=== PATIENT | male | born 1975 | race Caucasian/White ===

== ENCOUNTER → 2016-12-15 | Outpatient (REF) | payer OTHER | LOC: M LAB REF 13:11 | PROVIDERS: ATTEND Nurse Practitioner Family | DX: R35.0 Frequency of micturition (principal); E11.9 Type 2 diabetes mellitus without complications ==

== ENCOUNTER → 2016-12-22 | Outpatient (REF) | payer OTHER ==
[2016-12-22 19:11] LABS: BASO % 0.3 % (0.0-1.0); EOS # 0.2 K/mm3 (0.0-0.50); EOS % 3.3 % (0.0-3.0); LARGE UNSTAINED CELL # 0.1 K/mm3 (0.0-0.4); LARGE UNSTAINED CELL % 1.4 % (0.0-4.0); LYMPH # 2.4 K/mm3 (1.5-4.5); LYMPH % 31.9 % (24.0-44.0); MEAN CORPUSCULAR HEMOGLOBIN 29.5 pg (27.0-33.0); MEAN CORPUSCULAR HGB CONC 33.5 g/dl (32.0-36.5); MEAN CORPUSCULAR VOLUME 88.2 fl (80.0-96.0); MONO # 0.7 K/mm3 (0.0-0.8); MONO % 9.8 % (0.0-5.0); NEUTROPHILS # 3.8 K/mm3 (1.8-7.7); NEUTROPHILS % 53.3 % (36.0-66.0); PLATELET COUNT, AUTOMATED 191 k/mm3 (150-450); RED CELL DISTRIBUTION WIDTH 12.6 % (11.5-14.5); WHITE BLOOD COUNT 7.2 K/mm3 (4.0-10.0)
[2016-12-22 19:36] LABS: ALBUMIN 4.2 GM/DL (3.2-5.2); ALKALINE PHOSPHATASE 107 U/L (45-117); ALT/SGPT 23 U/L (12-78); AMYLASE 23 U/L (25-115); ANION GAP 6 MEQ/L (8-16); AST/SGOT 9 U/L (15-37); BILIRUBIN,TOTAL 0.5 MG/DL (0.2-1.0); BLOOD UREA NITROGEN 14 MG/DL (7-18); CALCIUM LEVEL 8.9 MG/DL (8.5-10.1); CARBON DIOXIDE LEVEL 25 MEQ/L (21-32); CHLORIDE LEVEL 103 MEQ/L (98-107); CHOLESTEROL LEVEL 176 MG/DL (<200); CREATININE FOR GFR 0.73 MG/DL (0.70-1.30); GLOMERULAR FILTRATION RATE > 60.0 (>60); GLUCOSE, FASTING 262 MG/DL (70-105); POTASSIUM SERUM 4.2 MEQ/L (3.5-5.1); SODIUM LEVEL 134 MEQ/L (136-145); TOTAL PROTEIN 7.2 GM/DL (6.4-8.2); TRIGLYCERIDES LEVEL 436 MG/DL (<150)
[2016-12-22 19:51] LABS: ERYTHROCYTE SEDIMENTATION RATE 3 mm/hr (0-15)
[2016-12-25 00:06] LABS: Lyme Disease IgG/IgM Antibodie <0.91 ISR (0.00-0.90); Lyme Disease IgM Ab Quantitati <0.80 index (0.00-0.79)
== END ==
LOC: M LAB REF 17:04
PROVIDERS: ATTEND Nurse Practitioner Family
DX: R10.9 Unspecified abdominal pain (principal); Z13.220 Encounter for screening for lipoid disorders; M25.50 Pain in unspecified joint; Z20.5 Contact with and (suspected) exposure to viral hepatitis; E11.9 Type 2 diabetes mellitus without complications; J02.9 Acute pharyngitis, unspecified; G60.9 Hereditary and idiopathic neuropathy, unspecified; F41.8 Other specified anxiety disorders

== ENCOUNTER → 2017-03-10 | Outpatient (REF) | payer OTHER ==
[2017-03-10 14:21] LABS: ANION GAP 7 MEQ/L (8-16); BLOOD UREA NITROGEN 14 MG/DL (7-18); CALCIUM LEVEL 8.8 MG/DL (8.5-10.1); CARBON DIOXIDE LEVEL 26 MEQ/L (21-32); CHLORIDE LEVEL 108 MEQ/L (98-107); CHOLESTEROL LEVEL 137 MG/DL (<200); CREATININE FOR GFR 0.81 MG/DL (0.70-1.30); GLOMERULAR FILTRATION RATE > 60.0 (>60); GLUCOSE, FASTING 134 MG/DL (70-105); POTASSIUM SERUM 4.1 MEQ/L (3.5-5.1); SODIUM LEVEL 141 MEQ/L (136-145); TRIGLYCERIDES LEVEL 114 MG/DL (<150)
== END ==
LOC: M LAB REF 13:31
PROVIDERS: ATTEND Nurse Practitioner Family
DX: E78.5 Hyperlipidemia, unspecified (principal); E11.9 Type 2 diabetes mellitus without complications

== ENCOUNTER → 2017-04-07 | Outpatient (CLI) | payer OTHER ==
[~2017-04-07] MED LIST: ATOR1TAB21 PO; BUSP15TA47 PO; DULO30CA PO; GABA-283 PO; LISI-542 PO; METF500T13 PO
--- NOTE | 2017-04-07 10:13 | REP ---
MAXILLOFACIAL CT WITHOUT CONTRAST: HISTORY: Chronic sinusitis. Moderate mucosal thickening is present in the ethmoid and left sphenoid sinuses. Minimal mucosal thickening is present in the maxillary, frontal, and right sphenoid sinuses. Mucosal thickening involves the ostiomeatal units. The middle and inferior nasal turbinates are partially paradoxical. There is pola bullosa of the left middle nasal turbinate. There is mild deviation of the nasal septum to the right. The nasal septum abuts the right middle nasal turbinate. A spur is present arising from the left side of the nasal septum. The cribriform plate, medial rossi of the orbits and optic canals are intact. The carotid canals form a segment of the posterolateral rossi of the sphenoid sinus. Soft tissue densities are present in the nasal passage consistent with polyps. IMPRESSION: 1. Sinus mucosal thickening as described above. 2. There are soft tissue densities in the nasal passage consistent with polyps. Signed by Tyler Rosen MD 04/07/2017 10:15 A
== END ==
LOC: M RAD 09:08
PROVIDERS: ATTEND Specialist
DX: J34.89 Other specified disorders of nose and nasal sinuses (principal); J32.4 Chronic pansinusitis; J33.0 Polyp of nasal cavity

== ENCOUNTER 2017-07-04 08:43 | Day surgery (SDC) | payer OTHER ==
[~2017-07-04] VITALS: Ht 172.7 cm; Wt 99.8 kg
[2017-07-04] MEDS ORDERED: LIDOCAINE 1% MDV 20ML VIAL SQ PRN (09:00)
[2017-07-04] MEDS ORDERED: LR 1,000 ML IV ONE (09:00)
[2017-07-04] MEDS ORDERED: METHYLENE BLUE 0.5% (5MG/ML) 10 ML AMP (PROVAYBLUE)(Q9968 PER 1MG) As Ordered ONE (10:12)
[2017-07-04] MEDS ORDERED: EPINEPHrine 1MG/ML INJ 30ML MD-VIAL As Ordered ONE (10:13)
[2017-07-04] MEDS ORDERED: OXYMETAZOLINE NASAL SPRAY (AFRIN) As Ordered ONE (10:13)
[2017-07-04] MEDS ORDERED: LIDOCAINE W/EPINEPHRINE 1% 20ML VIAL As Ordered ONE (10:13)
[2017-07-04] MEDS ORDERED: HYDROmorphone HCL 2 MG/ML 1ML VIAL (J1170) As Ordered ONE (10:32)
[2017-07-04] MEDS ORDERED: fentaNYL 100 MCG/2 ML INJECTION (J3010) As Ordered ONE (10:51)
[2017-07-04] MEDS ORDERED: PROPOFOL 500 MG/50 ML VIAL As Ordered ONE (10:51)
[2017-07-04] MEDS ORDERED: MIDAZOLAM INJ 2 MG/2 ML VIAL (J2250) As Ordered ONE (10:51)
[2017-07-04] MEDS ORDERED: ROCURONIUM BROMIDE 50 MG/5 ML VIAL As Ordered ONE (11:18)
[2017-07-04] MEDS ORDERED: LIDOCAINE 2% INJ 100 MG/5 ML SDV (FOR ANES.) As Ordered ONE (11:18)
[2017-07-04] MEDS ORDERED: dexameTHASONE 4 MG/ML 1ML VIAL (J1100) As Ordered ONE (11:18)
[2017-07-04] MEDS ORDERED: NEOSTIGMINE 10 MG/10 ML VIAL (J2710) As Ordered ONE (11:20)
[2017-07-04] MEDS ORDERED: GLYCOPYRROLATE INJ 0.2 MG/ML 2 ML VIAL As Ordered ONE (11:20)
[2017-07-04] MEDS ORDERED: ONDANSETRON 4MG/2ML VIAL (J2405) As Ordered ONE ×2 (11:22→12:50)
[2017-07-04] MEDS ORDERED: METOCLOPRAMIDE INJ 10MG/2ML VIAL (J2765) As Ordered ONE (12:38)
[2017-07-04] MEDS ORDERED: PERCOCET 5MG/325MG TAB PO PRN ×2 (13:00)
[2017-07-04] MEDS ORDERED: fentaNYL 100 MCG/2 ML INJECTION (J3010) IV PRN (13:00)
[2017-07-04] MEDS ORDERED: ONDANSETRON 4MG/2ML VIAL (J2405) IV PRN (13:00)
[2017-07-04] MEDS ORDERED: METOCLOPRAMIDE INJ 10MG/2ML VIAL (J2765) IV PRN (13:00)
[2017-07-04] MEDS ORDERED: LR 1,000 ML IV SCH (13:00)
[2017-07-04] MEDS ORDERED: HYDROmorphone HCL 1 MG/ML SYRINGE (J1170) IV PRN (13:00)
[2017-07-04] MEDS ORDERED: IBUPROFEN 800 MG TAB PO PRN (17:15)
[2017-07-04 17:45] VITALS: BP 154/88
--- NOTE | 2017-07-04 22:43 | ECGEPIP ---
Stationary ECG Study [facility] Test Date: 2017-07-04 Pat Name: MARQUEZ OLIVER Department: Room: - Gender: M Career Consultant: : 1975 Requested By: Kai Richter Order Number: [id number] Reading MD: Omid Ch Measurements Intervals [place] Rate: 70 P: 53 WV: 171 QRS: -7 QRSD: 107 T: 38 QT: 385 QTc: 418 Interpretive Statements SINUS RHYTHM INCOMPLETE RIGHT BUNDLE BRANCH BLOCK No prior ECG available for comparison at the time of interpretation. Electronically Signed On 07-04-2017 22:43:40 EDT by Omid Ch
--- NOTE | 2017-07-11 14:25 | RO ---
DATE OF PROCEDURE: 07/04/2017 PREPROCEDURE DIAGNOSES: Chronic sinusitis, deviated septum. POSTPROCEDURE DIAGNOSES: Chronic sinusitis, deviated septum. PROCEDURE: Bilateral total endoscopic ethmoidectomy with maxillary antrostomy and septoplasty. INDICATIONS: This is a 41-year-old who presents with a several year history of progressive nasal obstruction, congestion, recurrent sinusitis. PROCEDURE: Satisfactory general endotracheal anesthesia was administered, pharyngeal pack was placed, nose prepared for surgery by placing cotton-soaked pledgets with Afrin solution to the nasal cavity bilaterally, 1% Xylocaine with 1:100,000 epinephrine used to inject the nasal septum. A Zaheer incision was made on the left side of the nose. A mucoperichondrial flap and envelope was created on the left side of the nasal septum and carried down to the junction of the bony and cartilaginous septum. This was then with an elevator, and an envelope was then created on the right side of the septum. A Jaycob scissors was used to make a cut high in the perpendicular plate in the midportion of the vomer, and a central segment of the bony septum was resected. Next, with the round knife on the Luz elevator, a strip of cartilage was resected from the floor of the nose, mobilizing the quadrilateral cartilage and creating a swinging door. Then, a central segment of cartilaginous septum was resected, preserving a 1 cm dorsal and caudal strut. Double-action rongeur was used to take down deflected portions of the perpendicular plate, as well. Finally, the maxillary crest spur was taken down after elevating mucoperiosteum off both sides of it with a chisel. A segment of the resected cartilage was morselized and placed back into the septal envelope. The incision was closed using an interrupted #5-0 chromic suture. Then, a #4-0 plain suture was placed in a [id number] fashion through the two leaves of mucoperichondrium to appose them. After completing the septum surgery, preparation for endoscopic surgery was made. Adrenaline pledgets were placed into the nose. The patient was positioned for endoscopic surgery. Using the 0 degree telescope, 1% Xylocaine with 1:100,000 epinephrine was used to inject the lateral nasal wall and middle turbinate. The microdebrider was the primarily instrument. First, the lateral lamella of the pneumatized middle turbinate on the left side was resected. The uncinate process was shaved down with the microdebrider. The ethmoid bulla was visualized and entered and then resected away. Hyperplastic mucosa was encountered throughout the dissection with some polypoid tissue emerging from the ethmoid complex. This was shaved down with the microdebrider until normal landmarks were seen. The columnella was then perforated and the posterior ethmoid cells were entered again. Hyperplastic polypoid mucosa encountered, but working posteriorly and anteriorly, lamella bone, as well as the hyperplastic mucosa was resected following the lamina papyracea and the skull base anteriorly. Once the supraorbital ethmoid cell was identified, it was opened. The uncinate process was taken down superiorly. Next the natural maxillary sinus ostia was identified. It was cannulated and then using a combination of side biting and biting forceps, it was enlarged. A moderate amount of bleeding was encountered and therefore Adrenaline pledgets were used frequently for hemostasis. Once the dissection was completed, the ethmoid cavity was packed with adrenaline pledgets while the identical procedure was performed on the right side. In both cases, the superior turbinate was reduced to remove any polyps from the sphenoid recess. Completing the surgery on both sides, the adrenaline packs were removed. Nasopore sponge pack was placed on each side of the nose. Pharyngeal pack was removed. Throat was suctioned. The patient was then awakened, extubated and sent to recovery in satisfactory condition. He will discharged home on Percocet for pain, doxycycline 100 mg twice daily. He will be seen back in the office in 24 hours.
== END 2017-07-04 18:00 | disposition home or self-care (01) ==
LOC: M SDC 08:43
PROVIDERS: ATTEND Specialist
DX: J34.2 Deviated nasal septum (principal); J33.0 Polyp of nasal cavity; J32.4 Chronic pansinusitis; J31.0 Chronic rhinitis; I10 Essential (primary) hypertension; E11.40 Type 2 diabetes mellitus with diabetic neuropathy, unspecified; E78.00 Pure hypercholesterolemia, unspecified; K21.9 Gastro-esophageal reflux disease without esophagitis; M12.9 Arthropathy, unspecified; M54.5 Low back pain; F41.9 Anxiety disorder, unspecified; R51 Headache; G47.9 Sleep disorder, unspecified; R06.83 Snoring; Z79.899 Other long term (current) drug therapy; Z79.84 Long term (current) use of oral hypoglycemic drugs; Z72.0 Tobacco use; Z87.81 Personal history of (healed) traumatic fracture
CPT/HCPCS: 30520; 31255; 31256; 88305; 93005; C2625

== ENCOUNTER → 2017-09-21 | Outpatient (REF) | payer OTHER ==
[2017-09-21 14:20] LABS: ALBUMIN 4.1 GM/DL (3.2-5.2); ALBUMIN/GLOBULIN RATIO 1.46 (1.00-1.93); ALKALINE PHOSPHATASE 84 U/L (45-117); ALT/SGPT 24 U/L (12-78); ANION GAP 7 MEQ/L (8-16); AST/SGOT 10 U/L (7-37); BILIRUBIN,TOTAL 0.2 MG/DL (0.2-1.0); BLOOD UREA NITROGEN 14 MG/DL (7-18); CALCIUM LEVEL 8.8 MG/DL (8.5-10.1); CARBON DIOXIDE LEVEL 25 MEQ/L (21-32); CHLORIDE LEVEL 107 MEQ/L (98-107); CHOLESTEROL LEVEL 127 MG/DL (<200); CHOLESTEROL RISK RATIO 3.628 (<5); CREATININE FOR GFR 0.85 MG/DL (0.70-1.30); GLOMERULAR FILTRATION RATE > 60.0 (>60); GLUCOSE, FASTING 157 MG/DL (70-105); HDL CHOLESTEROL 35 MG/DL (>40); LDL CHOLESTEROL 67.4 MG/DL (<100); NON-HDL-C 92 MG/DL; POTASSIUM SERUM 4.5 MEQ/L (3.5-5.1); SODIUM LEVEL 139 MEQ/L (136-145); THYROID STIMULATING HORMONE 0.328 uIU/ML (0.358-3.740); TOTAL PROTEIN 6.9 GM/DL (6.4-8.2); TRIGLYCERIDES LEVEL 123 MG/DL (<150)
[2017-09-21 14:56] LABS: ESTIMATED AVERAGE GLUCOSE 140 MG/DL (60-110); HEMOGLOBIN A1c 6.5 %
== END ==
LOC: M LAB REF 13:06
DX: E11.9 Type 2 diabetes mellitus without complications (principal)

== ENCOUNTER → 2019-03-15 | Outpatient (REF) | payer OTHER ==
[~2019-03-15] MED LIST changes: -DULO30CA PO; +DULO30CA9 PO; -GABA-283 PO; +GABA-845 PO
== END ==
LOC: M LAB REF 17:13
PROVIDERS: ATTEND Nurse Practitioner Family
DX: E11.9 Type 2 diabetes mellitus without complications (principal)

== ENCOUNTER → 2019-05-10 | Outpatient (REF) | payer OTHER ==
[2019-05-10 18:39] LABS: BASO % 0.3 % (0.0-1.0); EOS # 0.3 10^3/uL (0.0-0.50); EOS % 3.4 % (0.0-3.0); HEMATOCRIT 47.8 % (42.0-52.0); HEMOGLOBIN 15.7 g/dl (13.5-17.5); LYMPH % 35.3 % (24.0-44.0); MEAN CORPUSCULAR HEMOGLOBIN 27.8 pg (27.0-33.0); MEAN CORPUSCULAR HGB CONC 32.8 g/dl (32.0-36.5); MEAN CORPUSCULAR VOLUME 84.8 fl (80.0-96.0); MONO # 0.9 10^3/uL (0.0-0.8); MONO % 9.9 % (0.0-5.0); NEUTROPHILS # 4.4 10^3/uL (1.8-7.7); NEUTROPHILS % 50.6 % (36.0-66.0); PLATELET COUNT, AUTOMATED 250 10^3/uL (150-450); RED BLOOD COUNT 5.64 10^6/uL (4.30-6.10); WHITE BLOOD COUNT 8.6 10^3/uL (4.0-10.0)
[2019-05-10 19:20] LABS: ALBUMIN 3.9 GM/DL (3.2-5.2); ALT/SGPT 22 U/L (12-78); BILIRUBIN,TOTAL 0.3 MG/DL (0.2-1.0); BLOOD UREA NITROGEN 14 MG/DL (7-18); CALCIUM LEVEL 9.2 MG/DL (8.5-10.1); CARBON DIOXIDE LEVEL 23 MEQ/L (21-32); CHLORIDE LEVEL 110 MEQ/L (98-107); CHOLESTEROL LEVEL 162 MG/DL (<200); CHOLESTEROL RISK RATIO 4.628 (<5); CREATININE FOR GFR 0.86 MG/DL (0.70-1.30); GLOMERULAR FILTRATION RATE > 60.0 (>60); GLUCOSE, FASTING 155 MG/DL (70-100); HDL CHOLESTEROL 35 MG/DL (>40); LDL CHOLESTEROL 101 MG/DL (<100); NON-HDL-C 127 MG/DL; POTASSIUM SERUM 4.4 MEQ/L (3.5-5.1); SODIUM LEVEL 139 MEQ/L (136-145); THYROID STIMULATING HORMONE 0.685 uIU/ML (0.358-3.740); TOTAL PROTEIN 7.2 GM/DL (6.4-8.2); TRIGLYCERIDES LEVEL 130 MG/DL (<150)
[2019-05-10 21:06] LABS: TOTAL 25(OH) VITAMIN D 22.7 NG/ML (30.0-100.0)
[2019-05-10 22:05] LABS: HEMOGLOBIN A1c 10.7 %
== END ==
LOC: M LAB REF 16:43
PROVIDERS: ATTEND Nurse Practitioner Family
DX: E11.9 Type 2 diabetes mellitus without complications (principal); E78.5 Hyperlipidemia, unspecified; I10 Essential (primary) hypertension

== ENCOUNTER → 2019-12-04 | Outpatient (REF) | payer OTHER, MEDICAID ==
[2019-12-04 12:14] LABS: BASO % 0.3 % (0.0-1.0); EOS # 0.5 10^3/uL (0.0-0.5); EOS % 4.5 % (0.0-3.0); HEMATOCRIT 44.7 % (42.0-52.0); HEMOGLOBIN 14.6 g/dl (13.5-17.5); LYMPH # 2.7 10^3/uL (1.5-5.0); LYMPH % 23.3 % (24.0-44.0); MEAN CORPUSCULAR HEMOGLOBIN 27.2 pg (27.0-33.0); MEAN CORPUSCULAR HGB CONC 32.7 g/dl (32.0-36.5); MEAN CORPUSCULAR VOLUME 83.2 fl (80.0-96.0); MONO # 1.4 10^3/uL (0.0-0.8); MONO % 12.3 % (0.0-5.0); NEUTROPHILS # 6.8 10^3/uL (1.5-8.5); NEUTROPHILS % 58.7 % (36.0-66.0); PLATELET COUNT, AUTOMATED 261 10^3/uL (150-450); RED BLOOD COUNT 5.37 10^6/uL (4.30-6.10); WHITE BLOOD COUNT 11.7 10^3/uL (4.0-10.0)
[2019-12-04 12:23] LABS: ALBUMIN 3.6 GM/DL (3.2-5.2); ALT/SGPT 21 U/L (12-78); BILIRUBIN,TOTAL 0.2 MG/DL (0.2-1.0); BLOOD UREA NITROGEN 19 MG/DL (7-18); CALCIUM LEVEL 9.2 MG/DL (8.5-10.1); CARBON DIOXIDE LEVEL 26 MEQ/L (21-32); CHLORIDE LEVEL 108 MEQ/L (98-107); CHOLESTEROL LEVEL 184 MG/DL (<200); CHOLESTEROL RISK RATIO 5.411 (<5); CREATININE FOR GFR 0.88 MG/DL (0.70-1.30); FREE T4 1.12 NG/DL (0.76-1.46); GLOMERULAR FILTRATION RATE > 60.0 (>60); GLUCOSE, FASTING 128 MG/DL (70-100); HDL CHOLESTEROL 34 MG/DL (>40); LDL CHOLESTEROL 118 MG/DL (<100); NON-HDL-C 150 MG/DL; POTASSIUM SERUM 4.2 MEQ/L (3.5-5.1); SODIUM LEVEL 139 MEQ/L (136-145); TOTAL PROTEIN 6.9 GM/DL (6.4-8.2); TRIGLYCERIDES LEVEL 159 MG/DL (<150)
[2019-12-04 12:26] LABS: TOTAL 25(OH) VITAMIN D 16.2 NG/ML (30.0-100.0)
[2019-12-04 12:28] LABS: HEMOGLOBIN A1c 6.7 %
== END ==
LOC: M LAB REF 11:37
PROVIDERS: ATTEND Nurse Practitioner Family
DX: E55.9 Vitamin D deficiency, unspecified (principal); E66.09 Other obesity due to excess calories; Z79.84 Long term (current) use of oral hypoglycemic drugs; Z72.0 Tobacco use; E78.5 Hyperlipidemia, unspecified; I10 Essential (primary) hypertension; F41.8 Other specified anxiety disorders; G60.9 Hereditary and idiopathic neuropathy, unspecified; E11.9 Type 2 diabetes mellitus without complications

== ENCOUNTER 2019-12-12 17:39 | Emergency (ER) | payer MEDICAID, OTHER ==
[~2019-12-12] VITALS: Ht 185.4 cm; Wt 110.8 kg
[2019-12-12 17:40] VITALS: BP 142/87
[2019-12-12] MEDS ORDERED: ACET-841 PO (17:58)
[2019-12-12] MEDS ORDERED: KETOROLAC 60 MG/2 ML VIAL (J1885) IM ONE (18:15)
--- NOTE | 2019-12-12 18:55 | REP ---
Clinical: Trauma. Technique: Frontal view of the chest with four views of the right hemithorax. Findings: Frontal view of the chest demonstrates no acute cardiopulmonary process. Multiple views of the right hemithorax demonstrates no obvious acute rib fracture or pathology. Impression: No acute rib fracture identified. Electronically Signed by Andrew Robertson MD 12/12/2019 06:46 P
== END 2019-12-12 19:02 | disposition home or self-care (01) ==
LOC: M ED 17:39
DX: S20.211A Contusion of right front wall of thorax, initial encounter (principal); V18.4XXA Pedal cycle driver injured in noncollision transport accident in traffic accident, initial encounter; Y92.410 Unspecified street and highway as the place of occurrence of the external cause; Y93.55 Activity, bike riding; Y99.9 Unspecified external cause status; E11.9 Type 2 diabetes mellitus without complications; I10 Essential (primary) hypertension; E78.5 Hyperlipidemia, unspecified; F17.200 Nicotine dependence, unspecified, uncomplicated
CPT/HCPCS: 71101; 96372; 99284; J1885

== ENCOUNTER 2020-03-18 16:03 | Emergency (ER) | payer OTHER ==
[~2020-03-18] VITALS: Ht 185.4 cm; Wt 101.3 kg
[~2020-03-18 16:03] MED LIST changes: +ACET-841 PO
[2020-03-18] MEDS ORDERED: METF10004 (16:11)
[2020-03-18] MEDS ORDERED: NS 1,000 ML IV ONE (16:45)
[2020-03-18] MEDS ORDERED: ONDANSETRON 4MG/2ML VIAL IV ONE (16:45)
--- NOTE | 2020-03-18 17:15 | REP ---
Clinical: Cellulitis. Evaluate for abscess. Technique: Real time fernández scale ultrasound examination using linear high frequency transducer. Findings: Directed ultrasound examination of the left antecubital region demonstrates subcutaneous edema and open wound. No discrete focal drainable collection/abscess identified. Impression: Significant subcutaneous edema and evidence for cellulitis with draining wound. No discrete abscess. Electronically Signed by Andrew Robertson MD 03/18/2020 05:07 P
[2020-03-18 17:50] LABS: BASO % 0.3 % (0.0-1.0); EOS # 0.1 10^3/uL (0.0-0.5); EOS % 1.8 % (0.0-3.0); HEMATOCRIT 38.5 % (42.0-52.0); HEMOGLOBIN 12.4 g/dl (13.5-17.5); LYMPH # 0.4 10^3/uL (1.5-5.0); MEAN CORPUSCULAR HEMOGLOBIN 26.5 pg (27.0-33.0); MEAN CORPUSCULAR HGB CONC 32.2 g/dl (32.0-36.5); MEAN CORPUSCULAR VOLUME 82.3 fl (80.0-96.0); MONO # 0.4 10^3/uL (0.0-0.8); NEUTROPHILS # 6.2 10^3/uL (1.5-8.5); NEUTROPHILS % 85.1 % (36.0-66.0); PLATELET COUNT, AUTOMATED 290 10^3/uL (150-450); RED BLOOD COUNT 4.68 10^6/uL (4.30-6.10); WHITE BLOOD COUNT 7.3 10^3/uL (4.0-10.0)
[2020-03-18 18:09] LABS: ERYTHROCYTE SEDIMENTATION RATE 39 mm/hr (0-15)
[2020-03-18 18:13] LABS: ALBUMIN 3.3 GM/DL (3.2-5.2); BILIRUBIN,DIRECT 0.2 MG/DL (0.0-0.2); BILIRUBIN,TOTAL 0.6 MG/DL (0.2-1.0); C REACTIVE PROTEIN QUANTITATIV 6.86 MG/DL (0.00-0.30); TOTAL PROTEIN 7.6 GM/DL (6.4-8.2)
[2020-03-18] MEDS ORDERED: DALBAVANCIN 1,500 MG in D5W 250 ML IV ONE (19:00)
[2020-03-18 20:06] VITALS: BP 132/77
== END 2020-03-18 20:40 | disposition home or self-care (01) ==
LOC: M ED 16:03
DX: L03.114 Cellulitis of left upper limb (principal); E11.9 Type 2 diabetes mellitus without complications; I10 Essential (primary) hypertension; F19.10 Other psychoactive substance abuse, uncomplicated; Z79.84 Long term (current) use of oral hypoglycemic drugs; Z79.899 Other long term (current) drug therapy
CPT/HCPCS: 76882; 80047; 80076; 83605; 85025; 85652; 86140; 87040; 87070; 87077; 87186; 87205; 96361; 96365; 96375; 99284; J0875; J2405

== ENCOUNTER 2020-08-22 04:30 | Inpatient (IN) | payer OTHER ==
[~2020-08-22] VITALS: Ht 185.4 cm; Wt 95.9 kg
[~2020-08-22 04:30] MED LIST changes: +METF10004
[2020-08-22 04:58] LABS: BASO % 0.3 % (0.0-1.0); EOS # 0.1 10^3/uL (0.0-0.5); EOS % 1.4 % (0.0-3.0); HEMATOCRIT 38.4 % (42.0-52.0); HEMOGLOBIN 12.4 g/dl (13.5-17.5); LYMPH # 2.5 10^3/uL (1.5-5.0); LYMPH % 25.5 % (24.0-44.0); MEAN CORPUSCULAR HEMOGLOBIN 25.8 pg (27.0-33.0); MEAN CORPUSCULAR HGB CONC 32.3 g/dl (32.0-36.5); MEAN CORPUSCULAR VOLUME 79.8 fl (80.0-96.0); MONO # 1.7 10^3/uL (0.0-0.8); MONO % 16.9 % (0.0-5.0); NEUTROPHILS # 5.5 10^3/uL (1.5-8.5); NEUTROPHILS % 55.7 % (36.0-66.0); PLATELET COUNT, AUTOMATED 295 10^3/uL (150-450); RED BLOOD COUNT 4.81 10^6/uL (4.30-6.10); WHITE BLOOD COUNT 9.9 10^3/uL (4.0-10.0)
[2020-08-22 05:34] LABS: ALBUMIN 3.7 GM/DL (3.2-5.2); ALT/SGPT 71 U/L (12-78); BILIRUBIN,DIRECT 0.2 MG/DL (0.0-0.2); BILIRUBIN,TOTAL 0.6 MG/DL (0.2-1.0); BLOOD UREA NITROGEN 37 MG/DL (7-18); CALCIUM LEVEL 8.7 MG/DL (8.5-10.1); CARBON DIOXIDE LEVEL 27 MEQ/L (21-32); CHLORIDE LEVEL 103 MEQ/L (98-107); CREATININE FOR GFR 1.35 MG/DL (0.70-1.30); GLOMERULAR FILTRATION RATE > 60.0 (>60); GLUCOSE, FASTING 151 MG/DL (70-100); LIPASE 65 U/L (73-393); POTASSIUM SERUM 4.1 MEQ/L (3.5-5.1); SODIUM LEVEL 138 MEQ/L (136-145); TOTAL PROTEIN 7.3 GM/DL (6.4-8.2)
[2020-08-22] MEDS ORDERED: NS 1,000 ML IV ONE (06:30)
[2020-08-22] MEDS ORDERED: ISOVUE-370 76% 100ML VIAL As Ordered ONE (06:37)
--- NOTE | 2020-08-22 07:34 | REPVR ---
PROCEDURE INFORMATION: Exam: CT Abdomen And Pelvis With Contrast Exam date and time: 08/22/2020 6:48 AM Age: 44 years old Clinical indication: Abdominal pain; Generalized; Additional info: Abd pain, hematachezia TECHNIQUE: Imaging protocol: Computed tomography of the abdomen and pelvis with intravenous contrast. Radiation optimization: All CT scans at this facility use at least one of these dose optimization techniques: automated exposure control; mA and/or kV adjustment per patient size (includes targeted exams where dose is matched to clinical indication); or iterative reconstruction. Contrast material: ISOVUE 370; Contrast volume: 100 ml; Contrast route: INTRAVENOUS (IV); COMPARISON: No relevant prior studies available. FINDINGS: Liver: The liver is enlarged measuring up to 18.7 cm in mid clavicular line. Gallbladder and bile ducts: Normal. No calcified stones. No ductal dilation. Pancreas: Normal. No ductal dilation. Spleen: The spleen is enlarged measuring up to 16 cm in maximum dimension. Adrenal glands: Normal. No mass. Kidneys and ureters: Bilateral renal cysts seen the largest on the right is in the upper pole measuring 2.5 cm and the largest on the left is in the lower pole measuring 2.3 centimetres. Some of the cysts measure higher than simple fluid. There is a 2 mm left renal stone. There is no ureteral stones or hydronephrosis. Stomach and bowel: There is short segment significant circumferential thickening of the sigmoid colon with an eccentric intraluminal masslike density. There are multiple prominent pericolonic lymph nodes measuring up to 1.4 centimetres with pericolonic stranding and increased vascularity. The cecum and proximal ascending colon are thickened. Appendix: No evidence of appendicitis. Intraperitoneal space: Unremarkable. No free air. No significant fluid collection. Vasculature: Unremarkable. No abdominal aortic aneurysm. Lymph nodes: Shotty retroperitoneal and mesenteric lymph nodes are seen. Urinary bladder: Unremarkable as visualized. Reproductive: Unremarkable as visualized. Bones/joints: There is L5-S1 disc degenerative changes. Soft tissues: There is a small bilateral fat containing inguinal hernias. IMPRESSION: 1. Short segment of significant sigmoid colon thickening with eccentric masslike intraluminal structure coupled with surrounding increased vascularity and numerous enlarged lymph nodes suspicious for neoplastic process. Similar findings but to lesser extent seen in the cecum and proximal ascending colon where colitis is a possibility. 2. Hepatosplenomegaly. 3. Bilateral renal cysts measuring higher than simple fluid which could be secondary to pseudo enhancement however further characterization with ultrasound or MRI is suggested. 4. Nonobstructing 2 mm left renal stone. 5. Small bilateral fat containing inguinal hernias. COMMENTS: Consistent with the [employer]'s Incidental Findings Committee white paper (J Am Sussy Radiol 2018): Any incidental renal lesion less than 1 cm or classified as too small to characterize, or any incidental cystic renal lesion characterized as simple-appearing, is likely benign. No follow-up imaging is recommended for these lesions per consensus recommendations based on imaging criteria. Electronically signed by: Chaz Loera On 08/22/2020 07:34:44 AM
--- NOTE | 2020-08-22 07:36 | REPVR ---
PROCEDURE INFORMATION: Exam: CT Head Without Contrast Exam date and time: 08/22/2020 6:48 AM Age: 44 years old Clinical indication: Injury or trauma; Fall; Blunt trauma (contusions or hematomas) TECHNIQUE: Imaging protocol: Computed tomography of the head without contrast. Radiation optimization: All CT scans at this facility use at least one of these dose optimization techniques: automated exposure control; mA and/or kV adjustment per patient size (includes targeted exams where dose is matched to clinical indication); or iterative reconstruction. COMPARISON: No relevant prior studies available. FINDINGS: Brain: Normal. No hemorrhage. Unremarkable white matter. No mass effect. Cerebral ventricles: No ventriculomegaly. Bones/joints: Unremarkable. No acute fracture. Paranasal sinuses: The patient is possibly status post ethmoidectomy. There is total opacification of the left sphenoid sinus. Mastoid air cells: Visualized mastoid air cells are well aerated. Soft tissues: Unremarkable. IMPRESSION: 1. No CT evidence of acute intracranial hemorrhage, mass effect or midline shift. 2. Likely status post ethmoidectomy with opacification in the region of the anterior right ethmoidal air cells and total opacification of the left sphenoid sinus. Electronically signed by: Chaz Loera On 08/22/2020 07:37:04 AM
[2020-08-22] MEDS ORDERED: DERMABOND TOPICAL SKIN ADHESIVE TOP ONE (08:00)
[2020-08-22] MEDS ORDERED: GLUCOSE 4GM CHEW TABLET PO PRN (09:00)
[2020-08-22] MEDS ORDERED: DEXTROSE 50% 50 ML SYRINGE IV PRN (09:00)
[2020-08-22] MEDS ORDERED: GLUCAGON INJ 1MG VIAL SC PRN (09:00)
--- NOTE | 2020-08-22 09:08 | HPEPDOC ---
General Date of Admission 08/22/20 Date of Service: Aug 22, 2020 Chief Complaint The patient is a 44-year-old male admitted with a reason for visit of Gi Problem. Source: Patient Exam Limitations: Intoxication Timing/Duration: Day(s) Severity: Moderate History of Present Illness Patient is 44 years old male with past medical history of polysubstance abuse, diabetes type 2, hypertension presented to the hospital with lower GI bleed. Patient stated that for past 2 days he has been having intermittent stool with red blood. Patient has never had his symptoms before. In ER patient was found to have positive orthostatic vital signs, he developed fall in emergency room and hit his head. CT head negative. CT abdomen and pelvis was done and showed Short segment of significant sigmoid colon thickening with eccentric masslike intraluminal structure coupled with surrounding increased vascularity and numerous enlarged lymph nodes suspicious for neoplastic process. Similar findings but to lesser extent seen in the cecum and proximal ascending colon where colitis is a possibility. Home Medications No Active Prescriptions or Reported Meds Allergies Coded Allergies: No Known Allergies (Unverified , 07/04/17) Past Medical History Medical History Type 2 diabetes, hypertension, polysubstance abuse Family History I personally reviewed from history and found not pertinent Social History * Smoker: current smoker Alcohol: Denies Drugs: IV drug use (methamphetamine) A-FIB/CHADSVASC A-FIB History Current/History of A-Fib/PAF?: No Current PO Anticoag Therapy: No Review of Systems Constitutional: Denies: Chills, Fever Eyes: Denies: Pain ENT: Denies: Head Aches Skin: Denies: Rash, Lesions Pulmonary: Denies: Dyspnea, Cough Cardiovascular: Denies: Chest Pain Gastrointestinal: Reports: Other Symptoms (stool covered with blood); Denies: Nausea, Vomiting Genitourinary: Denies: Dysuria Hematologic: Denies: Bruising Endocrine: Denies: Polydipsia, Polyphagia Musculoskeletal: Denies: Neck Pain Neurological: Denies: Weakness Psych: Reports: Anxiety Physical Examination General Exam: Positive: Alert, Cooperative ENT Exam: Positive: Atraumatic Neck Exam: Positive: Supple; Negative: JVD Chest Exam: Positive: Clear to auscultation Heart Exam: Positive: Rate Normal Telemetry: Positive: No significant arrhythmia Abdomen Exam: Positive: BS Hyperactive Extremity Exam: Negative: Clubbing Skin Exam: Positive: Nl turgor and temperature Neuro Exam: Positive: Strength at 5/5 X4 ext, Cranial Nerves 3-12 NL Psych Exam: Positive: Anxiety, Oriented x 3 Vital Signs Vital Signs Date Time Temp Pulse Resp B/P (MAP) Pulse Ox O2 Delivery O2 Flow Rate FiO2 08/22/20 07:28 87 100 08/22/20 07:15 20 144/90 (108) Room Air 08/22/20 04:30 99.8 Laboratory Data Labs 24H Laboratory Tests 2 08/22/20 04:52: Immature Granulocyte % (Auto) 0.2, Neutrophils (%) (Auto) 55.7, Lymphocytes (%) (Auto) 25.5, Monocytes (%) (Auto) 16.9H, Eosinophils (%) (Auto) 1.4, Basophils (%) (Auto) 0.3, Neutrophils # (Auto) 5.5, Lymphocytes # (Auto) 2.5, Monocytes # (Auto) 1.7H, Eosinophils # (Auto) 0.1, Basophils # (Auto) 0.0, Nucleated Red Blood Cells % (auto) 0.0, Anion Gap 8, Glomerular Filtration Rate > 60.0, Calcium Level 8.7, Total Bilirubin 0.6, Direct Bilirubin 0.2, Aspartate Amino Transf (AST/SGOT) 57H, Alanine Aminotransferase (ALT/SGPT) 71, Alkaline Phosphatase 89, Total Protein 7.3, Albumin 3.7, Albumin/Globulin Ratio 1.0, Lipase 65L, Ethyl Alcohol Level < 0.003 08/22/20 07:11: CBC/BMP Laboratory Tests 08/22/20 04:52 Assessment/Plan Patient is 44 years old male with past medical history of polysubstance abuse, diabetes type 2, hypertension presented to the hospital with lower GI bleed. Patient stated that for past 2 days he has been having intermittent stool with red blood. Patient has never had his symptoms before. In ER patient was found to have positive orthostatic vital signs, he developed fall in emergency room and hit his head. CT head negative. CT abdomen and pelvis was done and showed Short segment of significant sigmoid colon thickening with eccentric masslike intraluminal structure coupled with surrounding increased vascularity and numerous enlarged lymph nodes suspicious for neoplastic process. Similar findings but to lesser extent seen in the cecum and proximal ascending colon where colitis is a possibility. Problems (1) GI bleed Status: Acute Problem Text: Most likely lower GI bleed secondary to malignancy CT scan positive for sigmoid colon thickening with eccentric masslike intraluminal structure coupled with surrounding increased vascularity and numerous enlarged lymph nodes suspicious for neoplastic process. Similar findi ngs but to lesser extent seen in the cecum and proximal ascending colon where colitis is a possibility Appreciate/agree with GI consult. Patient will need colonoscopy Hemoglobin stable Continue to monitor Clear liquids for now (2) Diabetes mellitus Status: Chronic Problem Text: Patient complained to his treatment Will check HbA1c Insulin sliding scale (3) IV drug abuse Status: Chronic Problem Text: Social service on board (4) Hypertension Status: Chronic Problem Text: Norvasc 10 mg (5) DAYLIN (acute kidney injury) Status: Acute Problem Text: Secondary to dehydration IV fluid Continue to monitor Plan / VTE VTE Prophylaxis Ordered?: No VTE Exclusion Pharmacological: Active Bleeding BERNADETTE COLBERT DO Aug 22, 2020 09:08
[2020-08-22] MEDS ORDERED: amLODIPine 10 MG TAB PO ONE (09:15)
[2020-08-22] MEDS: NS 1,000 ML IV SCH ×2 (09:34→17:57)
[2020-08-22 09:41] LABS: AMPHETAMINES LEVEL URINE POSITIVE (NEGATIVE); BARBITURATES URINE NEGATIVE (NEGATIVE); BENZODIAZEPINES URINE NEGATIVE (NEGATIVE); CANNABINOIDS URINE NEGATIVE (NEGATIVE); COCAINE METABOLITE URINE NEGATIVE (NEGATIVE); METHADONE URINE NEGATIVE (NEGATIVE); OPIATES URINE NEGATIVE (NEGATIVE); PHENCYCLIDINE URINE NEGATIVE (NEGATIVE)
[2020-08-22] MEDS ORDERED: LORazepam 2 MG TAB PO ONE (10:30)
[2020-08-22 11:45] VITALS: BP 108/71
[2020-08-22] MEDS: HumaLOG INSULIN (NovoLOG) PER UNIT SC SCH ×3 (12:00→21:00)
[2020-08-22 14:00] VITALS: BP 110/73
--- NOTE | 2020-08-22 14:54 | CR.PDOC ---
General Surgery Consultation Date of Consultation 08/22/20 History and Physical CONSULT REPORT FOR: Dr. Henson REASON FOR CONSULTATION: rectal bleeding ?mass at sigmoid and cecum HISTORY OF PRESENT ILLNESS: I was asked to consult on Mr. Dominguez is a 44-year-old male who presented himself to the emergency room roughly about 4 AM this morning with complaints of passing large amounts of blood pain really since morning. I saw the patient in his room with patient has been falling in and out of sleep but I was talking to him so I was unable to get much of the details of this history. He denies any recent weight loss, any prior colonoscopy. He denies any family members with colorectal or GI malignancy. He reports noticing blood in the toilet bowl 1 or 2 times. Last episode was during the emergency room where he was noted to be incontinent and was having some bloody stool. He was also mildly orthostatic with his blood pressure. He had a fall and loss of consciousness during his stay in the emergency room which seemed to have prompted the multiple imaging for workup of possible injury. He has CT abdomen and pelvis which shows a possible mass at the sigmoid and may also be in the cecum. With this findings I was asked to evaluate the patient. He admits to taking Moly yesterday, denies taking conocomitant substances or alcohol PAST MEDICAL HISTORY: 1. drug use (current) 2. Diabetes 3. Hypertension 4. COPD/sleep apnea PAST SURGICAL HISTORY: INCLUDES: 1. jaw surgery 2. sinus surgery 3. arm and ankle surgery ALLERGIES: Please see below. FAMILY HISTORY: denies colorectal, gi malignancies HOME MEDICATIONS: Please see below. REVIEW OF SYSTEMS: Patient denies any abdominal weight loss. He reports a good appetite. She reports rate is regular daily bowel movements no prior bleeding per rectum, no problems with hemorrhoids. He reports use of Moly. Reports he has diabetes on metformin. Denies polyphagia, polyuria. Denies any bleeding or clotting problems. Denies any problems with anesthesia. He has never had a colonoscopy for any reason. Denies dysuria, hematuria. Denies any chronic abdominal complaints nausea vomiting bloating. Denies any chest pains. Reports COPD and sleep apnea but not all CPAP nor any medications for this. PHYSICAL EXAMINATION: VITALS SIGNS: Please see below. GENERAL APPEARANCE: Patient was asleep when I entered the room, hard to wake up and awoke was falling in and out of sleep while conversing with me. This does not seem to be in any acute distress nor in any pain. Slightly disoriented specially with time. He is aware that he is admitted in the hospital.. SKIN:: Moist. HEENT: Normocephalic, atraumatic.anicteric sclerae. Lips and mucosa appear moist. NECK: Supple, no thyromegaly. No obvious jugular venous distention. LUNGS: Clear to auscultation bilaterally. No wheezing appreciated. HEART: No chest wall abnormalities. Regular rate and rhythm with no murmurs appreciated. ABDOMEN: Abdomen is soft, flat, nondistended. EXTREMITIES: No extremity injury, deformity or edema ANCILLARIES: . LABORATORY DATA: Please see below. IMAGING STUDIES: CT scan abdomen and pelvis. I reviewed the images myself. He has some suspicious findings on his sigmoid colon with sigmoid colon thickening eccentric masslike intraluminal structure likewise enlarged lymph node suspicious for neoplastic process. Also in the cecum and ascending colon appears thickened. No free air or free fluid IMPRESSION AND PLAN: No GI bleeding Suspicious intraluminal lesions in the sigmoid and may be also in the cecum. With this findings patient will need a colonoscopy to figure out what's happening in the sigmoid colon and the cecum. Unfortunately acute swelling in and out of sleep so I'll come back and talk to him about doing a colonoscopy tomorrow. He does not seem to be in any position to perform a bowel prep tonight specially with history of fall. He can have some soft diet today, clear liquids tomorrow and possibly prep on Tuesday evening.. Vital Signs Vital Signs Date Time Temp Pulse Resp B/P (MAP) Pulse Ox O2 Delivery O2 Flow Rate FiO2 08/22/20 11:45 98.5 89 18 108/71 (83) 95 Room Air Laboratory Data Labs 24H Laboratory Tests 2 08/22/20 04:52: Immature Granulocyte % (Auto) 0.2, Neutrophils (%) (Auto) 55.7, Lymphocytes (%) (Auto) 25.5, Monocytes (%) (Auto) 16.9H, Eosinophils (%) (Auto) 1.4, Basophils (%) (Auto) 0.3, Neutrophils # (Auto) 5.5, Lymphocytes # (Auto) 2.5, Monocytes # (Auto) 1.7H, Eosinophils # (Auto) 0.1, Basophils # (Auto) 0.0, Nucleated Red Blood Cells % (auto) 0.0, Anion Gap 8, Glomerular Filtration Rate > 60.0, Calcium Level 8.7, Total Bilirubin 0.6, Direct Bilirubin 0.2, Aspartate Amino Transf (AST/SGOT) 57H, Alanine Aminotransferase (ALT/SGPT) 71, Alkaline Phosphatase 89, Total Protein 7.3, Albumin 3.7, Albumin/Globulin Ratio 1.0, Lipase 65L, Ethyl Alcohol Level < 0.003 08/22/20 07:11: Coronavirus (COVID-19)(PCR) NEGATIVE 08/22/20 08:59: Urine Opiates Screen NEGATIVE, Urine Methadone Screen NEGATIVE, Urine Barbiturates Screen NEGATIVE, Urine Phencyclidine Screen NEGATIVE, Urine Amphetamines Screen POSITIVEH, Urine Benzodiazepines Screen NEGATIVE, Urine Cocaine Metabolite Screen NEGATIVE, Urine Cannabinoids Screen NEGATIVE 08/22/20 11:47: Bedside Glucose (Misc Panel) 134H CBC/BMP Laboratory Tests 08/22/20 04:52 Home Medications No Active Prescriptions or Reported Meds Allergies Coded Allergies: No Known Allergies (Unverified , 07/04/17) FERMÍN SINGER MD Aug 22, 2020 12:21
[2020-08-22 22:00] VITALS: BP 125/85
[2020-08-23] MEDS: NS 1,000 ML IV SCH ×3 (02:58→21:21)
[2020-08-23 05:02] LABS: HEMOGLOBIN 11.1 g/dl (13.5-17.5); MEAN CORPUSCULAR HEMOGLOBIN 25.5 pg (27.0-33.0); MEAN CORPUSCULAR HGB CONC 30.8 g/dl (32.0-36.5); MEAN CORPUSCULAR VOLUME 82.6 fl (80.0-96.0); PLATELET COUNT, AUTOMATED 226 10^3/uL (150-450); RED BLOOD COUNT 4.36 10^6/uL (4.30-6.10); WHITE BLOOD COUNT 6.8 10^3/uL (4.0-10.0)
[2020-08-23 06:00] VITALS: BP 126/72
--- NOTE | 2020-08-23 06:34 | ECGEPIP ---
[facility] - ED Test Date: 2020-08-22 Pat Name: MARQUEZ OLIVER Department: Room: - Gender: Male Complaint Clerk: juvencio : 1975 Requested By: CHELLY Guzman Order Number: [id number] Reading MD: Daiana Gomez Measurements Intervals [place] Rate: 99 P: 56 HI: 158 QRS: -11 QRSD: 102 T: 39 QT: 356 QTc: 459 Interpretive Statements SINUS RHYTHM INCOMPLETE RIGHT BUNDLE BRANCH BLOCK NONSPECIFIC ST T WAVE CHANGES PROLONGED QTC CW 07/04/[address] T WAVE CHANGES Electronically Signed on 08-23-2020 6:33:45 EST by Daiana Gomez
[2020-08-23] MEDS: HumaLOG INSULIN (NovoLOG) PER UNIT SC SCH ×4 (07:30→21:00)
[2020-08-23 08:42] LABS: ALBUMIN 2.8 GM/DL (3.2-5.2); ALT/SGPT 50 U/L (12-78); BILIRUBIN,TOTAL 0.3 MG/DL (0.2-1.0); BLOOD UREA NITROGEN 16 MG/DL (7-18); CALCIUM LEVEL 8.2 MG/DL (8.5-10.1); CARBON DIOXIDE LEVEL 28 MEQ/L (21-32); CHLORIDE LEVEL 104 MEQ/L (98-107); CREATININE FOR GFR 0.79 MG/DL (0.70-1.30); GLOMERULAR FILTRATION RATE > 60.0 (>60); GLUCOSE, FASTING 116 MG/DL (70-100); MAGNESIUM LEVEL 1.7 MG/DL (1.8-2.4); POTASSIUM SERUM 3.4 MEQ/L (3.5-5.1); SODIUM LEVEL 138 MEQ/L (136-145); TOTAL PROTEIN 5.7 GM/DL (6.4-8.2)
[2020-08-23] MEDS: amLODIPine 10 MG TAB PO SCH (09:00)
[2020-08-23] MEDS: NICOTINE 21MG/24HR 1 EA TRANSDERMAL TD PRN (09:29)
--- NOTE | 2020-08-23 13:03 | IPNPDOC ---
Text Note Date of Service The patient was seen on 08/23/20. NOTE Subjective: Patient had a few bowel movements overnight with blood Objective: GENERAL APPEARANCE: NAD HEENT: no scleral icterus, no JVD, EOMI CARDIOVASCULAR: S1S2 LUNGS: CTA ABDOMEN: soft & not tender w palpitation MUSCULOSKELETAL: no cyanosis, no swelling INTEGUMENT: no generalized pallor NEUROLOGICAL: cranial nerve function from 2-12 intact intact, follows commands, speech not dysarthric Assessment/Plan Patient is 44 years old male with past medical history of polysubstance abuse, diabetes type 2, hypertension presented to the hospital with lower GI bleed. Patient stated that for past 2 days he has been having intermittent stool with red blood. Patient has never had his symptoms before. In ER patient was found to have positive orthostatic vital signs, he developed fall in emergency room and hit his head. CT head negative. CT abdomen and pelvis was done and showed Short segment of significant sigmoid colon thickening with eccentric masslike intra luminal structure coupled with surrounding increased vascularity and numerous enlarged lymph nodes suspicious for neoplastic process. Similar findings but to lesser extent seen in the cecum and proximal ascending colon where colitis is a possibility. Problems (1) GI bleed Most likely lower GI bleed secondary to malignancy CT scan positive for sigmoid colon thickening with eccentric masslike intraluminal structure coupled with surrounding increased vascularity and numerous enlarged lymph nodes suspicious for neoplastic process. Similar findings but to lesser extent seen in the cecum and proximal ascending colon where colitis is a possibility Surgical team consulted patient. Colonoscopy planned for tomorrow Hemoglobin stable Continue to monitor Clear liquids for now (2) Diabetes mellitus Patient non complained to his treatment await HbA1c Insulin sliding scale (3) IV drug abuse Social service on board (4) Hypertension Norvasc 10 mg (5) DAYLIN (acute kidney injury) Secondary to dehydration IV fluid Continue to monitor VS,Fishbone, I+O VS, Fishbone, I+O Laboratory Tests 08/23/20 04:35 Vital Signs Date Time Temp Pulse Resp B/P (MAP) Pulse Ox O2 Delivery O2 Flow Rate FiO2 08/23/20 09:00 83 109/73 08/23/20 06:00 98.3 18 98 Room Air I&O- Last 24 Hours up to 6 AM 08/23/20 06:00 Intake Total 6755 ml Output Total 1850 ml Balance 4905 ml BERNADETTE COLBERT DO Aug 23, 2020 13:03
[2020-08-23 14:00] VITALS: BP 110/75
[2020-08-23 14:51] LABS: HEMOGLOBIN A1c 6.3 %
[2020-08-23] MEDS ORDERED: GOLYTELY SOLN 4000 ML BTL PO ONE (15:30)
[2020-08-23] MEDS ORDERED: MAGNESIUM CITRATE 300 ML BTL PO ONE (17:00)
[2020-08-23] MEDS ORDERED: BISACODYL 5 MG TAB PO ONE (17:00)
[2020-08-23 21:23] VITALS: BP 117/77
[2020-08-24] MEDS ORDERED: GOLYTELY SOLN 4000 ML BTL PO ONE (00:30)
[2020-08-24] MEDS: NS 1,000 ML IV SCH ×2 (04:41→11:30)
[2020-08-24 06:00] VITALS: BP 127/81
[2020-08-24 07:06] LABS: HEMATOCRIT 34.4 % (42.0-52.0); HEMOGLOBIN 10.6 g/dl (13.5-17.5); MEAN CORPUSCULAR HEMOGLOBIN 25.5 pg (27.0-33.0); MEAN CORPUSCULAR HGB CONC 30.8 g/dl (32.0-36.5); MEAN CORPUSCULAR VOLUME 82.9 fl (80.0-96.0); PLATELET COUNT, AUTOMATED 233 10^3/uL (150-450); RED BLOOD COUNT 4.15 10^6/uL (4.30-6.10); WHITE BLOOD COUNT 4.8 10^3/uL (4.0-10.0)
[2020-08-24] MEDS: HumaLOG INSULIN (NovoLOG) PER UNIT SC SCH ×4 (07:15→21:00)
[2020-08-24] MEDS ORDERED: propofoL 200 MG/20 ML VIAL As Ordered ONE ×2 (07:16→09:06)
[2020-08-24] MEDS ORDERED: MIDAZOLAM INJ 2MG/2ML VIAL (J2250 PER 1MG) As Ordered ONE (07:16)
[2020-08-24] MEDS ORDERED: LIDOCAINE 2% 100MG/5ML SDV (FOR ANES.) As Ordered ONE (07:19)
[2020-08-24 07:30] LABS: BLOOD UREA NITROGEN 6 MG/DL (7-18); CALCIUM LEVEL 8.1 MG/DL (8.5-10.1); CARBON DIOXIDE LEVEL 28 MEQ/L (21-32); CHLORIDE LEVEL 109 MEQ/L (98-107); CREATININE FOR GFR 0.66 MG/DL (0.70-1.30); GLOMERULAR FILTRATION RATE > 60.0 (>60); GLUCOSE, FASTING 95 MG/DL (70-100); MAGNESIUM LEVEL 1.9 MG/DL (1.8-2.4); POTASSIUM SERUM 3.6 MEQ/L (3.5-5.1); SODIUM LEVEL 140 MEQ/L (136-145)
[2020-08-24 07:57] VITALS: BP 133/83
--- NOTE | 2020-08-24 08:20 | IPNPDOC ---
Text Note Date of Service The patient was seen on 08/24/20. NOTE Patient seen in the preoperative holding area. He is admitted for GI bleeding probably from a mass seen on the sigmoid colon on CT. He underwent bowel prep last night, but that took a while to work. He reports loose watery stools now, denies nausea, bloating, vomiting, abdominal pain On exam, looks comfortable abdomen nondistended, soft, nontender Plan: for colonoscopy today. I reviewed the risks and benefits of the procedure. consent was obtained during my visit yesterday. VS,Christophere, I+O VS, [place]ro[place]one, I+O Laboratory Tests 08/24/20 06:44 Vital Signs Date Time Temp Pulse Resp B/P (MAP) Pulse Ox O2 Delivery O2 Flow Rate FiO2 08/24/20 07:57 97.4 81 17 133/83 (100) 98 Room Air I&O- Last 24 Hours up to 6 AM 08/24/20 06:00 Intake Total 8620 ml Output Total 2925 ml Balance 5695 ml FERMÍN SINGER MD Aug 24, 2020 08:20
[2020-08-24] MEDS: amLODIPine 10 MG TAB PO SCH (09:00)
[2020-08-24] MEDS ORDERED: ONDANSETRON 4MG/2ML VIAL As Ordered ONE (09:06)
--- NOTE | 2020-08-24 09:28 | ROOR ---
Patient Name: Tad Dominguez Procedure Date: 08/24/2020 7:58 AM Date of : 1975 Age: 45 Room: [facility] Gender: Male Note Status: Finalized Procedure: Colonoscopy Indications: Hematochezia Providers: Josef Helton MD Referring MD: 2. Inpatient 2. Inpatient Requesting Provider: Medicines: Monitored Anesthesia Care Complications: Patient with intermittent bilious vomiting, oral airway started by Anesthesia and suctioning of his mouth performed. Procedure: Pre-Anesthesia Assessment: - Prior to the procedure, a History and Physical was performed, and patient medications and allergies were reviewed. The patient is competent. The risks and benefits of the procedure and the sedation options and risks were discussed with the patient. All questions were answered and informed consent was obtained. Patient identification and proposed procedure were verified by the physician, the nurse and the tube machine operator helper in the procedure room. Mental Status Examination: alert and oriented. Airway Examination: normal oropharyngeal airway and neck mobility. Respiratory Examination: clear to auscultation. CV Examination: normal. Prophylactic Antibiotics: The patient does not require prophylactic antibiotics. Prior Anticoagulants: The patient has taken no previous anticoagulant or antiplatelet agents. ASA Grade Assessment: II - A patient with mild systemic disease. After reviewing the risks and benefits, the patient was deemed in satisfactory condition to undergo the procedure. The anesthesia plan was to use monitored anesthesia care (MAC). Immediately prior to administration of medications, the patient was re-assessed for adequacy to receive sedatives. The heart rate, respiratory rate, oxygen saturations, blood pressure, adequacy of pulmonary ventilation, and response to care were monitored throughout the procedure. The physical status of the patient was re-assessed after the procedure. The Colonoscope was introduced through the anus and advanced to the cecum, identified by appendiceal orifice and ileocecal valve. The colonoscopy was technically difficult and complex due to a partially obstructing mass. The patient tolerated the procedure. The quality of the bowel preparation was fair. Findings: The perianal and digital rectal examinations were normal. A fungating large mass was found in the sigmoid colon. The mass was circumferential. The mass measured eight cm in length with contact bleeding, stigmata of previous bleed This was biopsied with a cold forceps for histology. Area was successfully injected with 4 mL Christina ink for tattooing. Estimated blood loss was minimal. A frond-like/villous non-obstructing medium-sized mass was found in the cecum. The mass was non-circumferential. The mass measured three cm in length. No bleeding was present. This was biopsied with a cold forceps for histology. Estimated blood loss was minimal. multiple areas with thick puddle of stool, small polyps may have been missed. Patient has been intermittently vomiting bilious fluid so small polyps or lesions may be missed as the focus of the procedure are the two likely malignant masses in his colon. Impression: - Preparation of the colon was fair. - Likely malignant tumor in the sigmoid colon. Biopsied. Injected. - Likely malignant tumor in the cecum. Biopsied. Recommendation: - Admit the patient to hospital [facility] for ongoing care. - Await pathology results. Procedure Code(s): --- Professional --- 01876, Colonoscopy, flexible; with directed submucosal injection(s), any substance 66148, Colonoscopy, flexible; with biopsy, single or multiple Diagnosis Code(s): --- Professional --- D49.0, Neoplasm of unspecified behavior of digestive system K92.1, Melena (includes Hematochezia) CPT copyright 2019 [employer]. All rights reserved. The codes documented in this report are preliminary and upon supervisor hide house review may be revised to meet current compliance requirements. Josef Helton MD Josef Helton MD 08/24/2020 9:28:14 AM Electronically signed by Josef Helton MD Number of Addenda: 0 Note Initiated On: 08/24/2020 7:58 AM Estimated Blood Loss: Estimated blood loss was minimal.
[2020-08-24] MEDS ORDERED: LR 1,000 ML IV SCH (09:45)
[2020-08-24] MEDS ORDERED: ONDANSETRON 4MG/2ML VIAL IV PRN (09:45)
[2020-08-24] MEDS: NICOTINE 21MG/24HR 1 EA TRANSDERMAL TD PRN (11:30)
--- NOTE | 2020-08-24 12:19 | IPNPDOC ---
Text Note Date of Service The patient was seen on 08/24/20. NOTE Subjective: Patient had colonoscopy in the morning, tolerates procedure well. I explained patient our findings. Objective: GENERAL APPEARANCE: NAD HEENT: no scleral icterus, no JVD, EOMI CARDIOVASCULAR: S1S2 LUNGS: CTA ABDOMEN: soft & not tender w palpitation MUSCULOSKELETAL: no cyanosis, no swelling INTEGUMENT: no generalized pallor NEUROLOGICAL: cranial nerve function from 2-12 intact intact, follows commands, speech not dysarthric Assessment/Plan Patient is 44 years old male with past medical history of polysubstance abuse, diabetes type 2, hypertension presented to the hospital with lower GI bleed. Patient stated that for past 2 days he has been having intermittent stool with red blood. Patient has never had his symptoms before. In ER patient was found to have positive orthostatic vital signs, he developed fall in emergency room and hit his head. CT head negative. CT abdomen and pelvis was done and showed Short segment of significant sigmoid colon thickening with eccentric masslike intraluminal structure coupled with surrounding increased vascularity and numerous enlarged lymph nodes suspicious for neoplastic process. Similar findings but to lesser extent seen in the cecum and proximal ascending colon where colitis is a possibility. Problems (1) GI bleed Most likely lower GI bleed secondary to malignancy CT scan positive for sigmoid colon thickening with eccentric masslike intraluminal structure coupled with surrounding increased vascularity and numerous enlarged lymph nodes suspicious for neoplastic process. Similar findings but to lesser extent seen in the cecum and proximal ascending colon where colitis is a possibility Surgical team consulted patient. Colonoscopy was done on 08/24/20. It shows The perianal and digital rectal examinations were normal. A fungating large mass was found in the sigmoid colon. The mass was circumferential. The mass measured eight cm in length with contact bleeding, stigmata of previous bleed Await biopsy result Will proceed with CT chest Hemoglobin stable Continue to monitor Diabetes mellitus HbA1c 6.3 Insulin sliding scale IV drug abuse Social service on board Hypertension Norvasc 10 mg DAYLIN (acute kidney injury) Resolved VS,Fishbone, I+O VS, Fishbone, I+O Laboratory Tests 08/24/20 06:44 Vital Signs Date Time Temp Pulse Resp B/P (MAP) Pulse Ox O2 Delivery O2 Flow Rate FiO2 08/24/20 09:50 98 71 17 114/75 (88) 98 Room Air I&O- Last 24 Hours up to 6 AM 08/24/20 06:00 Intake Total 8620 ml Output Total 2925 ml Balance 5695 ml BERNADETTE COLBERT DO Aug 24, 2020 12:19
[2020-08-24] MEDS ORDERED: ISOVUE-370 76% 100ML VIAL As Ordered ONE (12:23)
--- NOTE | 2020-08-24 13:49 | REP ---
INDICATION: metastasis. Annular left colon lesion seen on CT study of the abdomen and pelvis. COMPARISON: Abdomen and pelvis CT study August 22, 2020.. TECHNIQUE: Helical scanning is acquired post intravenous contrast administration. Contrast enhancement dose is 100 mL of intravenous Isovue 370. 3 mm axial images re-formatted. Coronal and sagittal MPR and coronal MIP images are generated and reviewed. FINDINGS: Preliminary digital tree scout radiograph is unremarkable. There is no identifiable pulmonary nodule or mass lesion. A small infiltrate like opacity is seen in the lingula which appears to be inflammatory. Lung carranza are otherwise clear. No pleural or pericardial effusion is seen. No hilar or mediastinal mass or adenopathy is observed. No bony destructive lesion is seen. There cysts in the upper poles of the kidneys bilaterally unchanged. IMPRESSION: No CT evidence of pulmonary or other thoracic metastatic disease. Small infiltrate seen in the lingula. Otherwise no acute disease. <Electronically signed by Dio Mojica > 08/24/20 [id number]
[2020-08-24] MEDS: ACETAMINOPHEN TAB 650MG DOSE (2X325MG) PO PRN (13:52)
[2020-08-24 14:00] VITALS: BP 138/88
[2020-08-24 22:00] VITALS: BP 130/85
[2020-08-24] MEDS: LORazepam 1 MG TAB PO PRN (22:04)
[2020-08-25 05:56] LABS: HEMOGLOBIN 11.3 g/dl (13.5-17.5); MEAN CORPUSCULAR HGB CONC 31.4 g/dl (32.0-36.5); MEAN CORPUSCULAR VOLUME 82.8 fl (80.0-96.0); PLATELET COUNT, AUTOMATED 262 10^3/uL (150-450); RED BLOOD COUNT 4.35 10^6/uL (4.30-6.10)
[2020-08-25 06:00] VITALS: BP 129/84
[2020-08-25 06:26] LABS: BLOOD UREA NITROGEN 8 MG/DL (7-18); CALCIUM LEVEL 8.5 MG/DL (8.5-10.1); CARBON DIOXIDE LEVEL 28 MEQ/L (21-32); CHLORIDE LEVEL 108 MEQ/L (98-107); GLOMERULAR FILTRATION RATE > 60.0 (>60); GLUCOSE, FASTING 128 MG/DL (70-100); MAGNESIUM LEVEL 1.9 MG/DL (1.8-2.4); POTASSIUM SERUM 3.7 MEQ/L (3.5-5.1); SODIUM LEVEL 138 MEQ/L (136-145)
[2020-08-25] MEDS: HumaLOG INSULIN (NovoLOG) PER UNIT SC SCH ×4 (07:30→20:48)
[2020-08-25] MEDS: amLODIPine 10 MG TAB PO SCH (08:06)
[2020-08-25 14:00] VITALS: BP 129/82
--- NOTE | 2020-08-25 15:32 | IPNPDOC ---
Text Note Date of Service The patient was seen on 08/25/20. NOTE Subjective: No any acute events overnight. Patient stated that he has increased anxiety. Objective: GENERAL APPEARANCE: NAD HEENT: no scleral icterus, no JVD, EOMI CARDIOVASCULAR: S1S2 LUNGS: CTA ABDOMEN: soft & not tender w palpitation MUSCULOSKELETAL: no cyanosis, no swelling INTEGUMENT: no generalized pallor NEUROLOGICAL: cranial nerve function from 2-12 intact intact, follows commands, speech not dysarthric 0 Assessment/Plan Patient is 44 years old male with past medical history of polysubstance abuse, diabetes type 2, hypertension presented to the hospital with lower GI bleed. Patient stated that for past 2 days he has been having intermittent stool with red blood. Patient has never had his symptoms before. In ER patient was found to have positive orthostatic vital signs, he developed fall in emergency room and hit his head. CT head negative. CT abdomen and pelvis was done and showed Short segment of significant sigmoid colon thickening with eccentric masslike intraluminal structure coupled with surrounding increased vascularity and numerous enlarged lymph nodes suspicious for neoplastic process. Similar findings but to lesser extent seen in the cecum and proximal ascending colon where colitis is a possibility. Problems (1) GI bleed Most likely lower GI bleed secondary to malignancy CT scan positive for sigmoid colon thickening with eccentric masslike intraluminal structure coupled with surrounding increased vascularity and nume ace enlarged lymph nodes suspicious for neoplastic process. Similar findings but to lesser extent seen in the cecum and proximal ascending colon where colitis is a possibility Surgical team consulted patient. Colonoscopy was done on 08/24/20. It shows The perianal and digital rectal examinations were normal. A fungating large mass was found in the sigmoid colon. The mass was circumferential. The mass measured eight cm in length with contact bleeding, stigmata of previous bleed Await biopsy result CT chest negative for metastasis Dr. Helton planned sigmoid resection in 1-2 days Hemoglobin stable Continue to monitor Diabetes mellitus HbA1c 6.3 Insulin sliding scale IV drug abuse Social service on board Hypertension Norvasc 10 mg DAYLIN (acute kidney injury) Resolved Anxiety/depression Patient has drug abuse history and stated that he has been suffering from anxiety Follow-up with psychiatrist in the outpatient settings Fluoxetine 10 mg daily VS,Fishbone, I+O VS, Fishbone, I+O Laboratory Tests 08/25/20 05:34 Vital Signs Date Time Temp Pulse Resp B/P (MAP) Pulse Ox O2 Delivery O2 Flow Rate FiO2 08/25/20 14:00 98.2 70 18 129/82 (98) 98 Room Air I&O- Last 24 Hours up to 6 AM 08/25/20 06:00 Intake Total 5005 ml Output Total 2275 ml Balance 2730 ml BERNADETTE COLBERT DO Aug 25, 2020 15:32
[2020-08-25] MEDS ORDERED: FLUoxetine 10 MG CAP PO ONE (15:45)
[2020-08-25] MEDS ORDERED: DULoxetine 30 MG CAP (CYMBALTA) PO ONE (17:00)
[2020-08-25] MEDS ORDERED: MAGNESIUM CITRATE 300 ML BTL PO ONE (19:00)
[2020-08-25] MEDS ORDERED: NEOMYCIN SULFATE 500 MG TAB PO ONE (20:00)
[2020-08-25] MEDS ORDERED: GOLYTELY SOLN 4000 ML BTL PO ONE (20:00)
[2020-08-25] MEDS ORDERED: metroNIDAZOLE (FLAGYL) 500MG TABLET PO ONE (20:00)
[2020-08-25 22:00] VITALS: BP 133/80
[2020-08-25] MEDS: LR 1,000 ML IV SCH (23:52)
[2020-08-26] MEDS ORDERED: NEOMYCIN SULFATE 500 MG TAB PO ONE (03:00)
[2020-08-26] MEDS ORDERED: metroNIDAZOLE (FLAGYL) 500MG TABLET PO ONE (03:00)
[2020-08-26 06:00] VITALS: BP 141/93
[2020-08-26] MEDS ORDERED: FLEET ENEMA PR PRN (06:00)
[2020-08-26] MEDS ORDERED: ALVIMOPAN 12 MG CAPSULE (ENTEREG) PO ONE (06:00)
[2020-08-26] MEDS: HumaLOG INSULIN (NovoLOG) PER UNIT SC SCH ×4 (07:30→21:00)
[2020-08-26 07:45] LABS: HEMATOCRIT 41.3 % (42.0-52.0); HEMOGLOBIN 12.9 g/dl (13.5-17.5); MEAN CORPUSCULAR HEMOGLOBIN 25.7 pg (27.0-33.0); MEAN CORPUSCULAR HGB CONC 31.2 g/dl (32.0-36.5); MEAN CORPUSCULAR VOLUME 82.3 fl (80.0-96.0); PLATELET COUNT, AUTOMATED 310 10^3/uL (150-450); RED BLOOD COUNT 5.02 10^6/uL (4.30-6.10); WHITE BLOOD COUNT 6.4 10^3/uL (4.0-10.0)
[2020-08-26 07:55] LABS: BLOOD UREA NITROGEN 8 MG/DL (7-18); CALCIUM LEVEL 8.9 MG/DL (8.5-10.1); CARBON DIOXIDE LEVEL 29 MEQ/L (21-32); CHLORIDE LEVEL 105 MEQ/L (98-107); GLOMERULAR FILTRATION RATE > 60.0 (>60); GLUCOSE, FASTING 102 MG/DL (70-100); MAGNESIUM LEVEL 2.1 MG/DL (1.8-2.4); POTASSIUM SERUM 4.2 MEQ/L (3.5-5.1); SODIUM LEVEL 138 MEQ/L (136-145)
[2020-08-26 08:26] VITALS: BP 125/82
[2020-08-26] MEDS: amLODIPine 10 MG TAB PO SCH (08:26)
[2020-08-26] MEDS ORDERED: fentaNYL 250 MCG/5 ML INJECTION (J3010) As Ordered ONE (08:43)
[2020-08-26] MEDS ORDERED: MIDAZOLAM INJ 2MG/2ML VIAL (J2250 PER 1MG) As Ordered ONE (08:43)
[2020-08-26] MEDS ORDERED: dexameTHASONE 4 MG/ML 1ML VIAL (J1100 PER 1MG) As Ordered ONE ×2 (08:44→13:44)
[2020-08-26] MEDS ORDERED: ONDANSETRON 4MG/2ML VIAL As Ordered ONE ×2 (08:44→19:14)
[2020-08-26] MEDS ORDERED: propofoL 200 MG/20 ML VIAL As Ordered ONE ×2 (08:44→10:50)
[2020-08-26] MEDS ORDERED: PHENYLephrine HCL 500 MCG/5 ML (100MCG/ML) SYRINGE (J2370) As Ordered ONE ×2 (08:44→17:43)
[2020-08-26] MEDS ORDERED: ROCURONIUM BROMIDE 50 MG/5 ML VIAL As Ordered ONE ×6 (08:44→16:54)
[2020-08-26] MEDS ORDERED: LIDOCAINE 2% 100MG/5ML SDV (FOR ANES.) As Ordered ONE (08:44)
[2020-08-26] MEDS ORDERED: ACETAMINOPHEN 1000MG 100ML IV BTL (OFIRMEV) (J0131 PER 10MG) As Ordered ONE (08:44)
[2020-08-26] MEDS ORDERED: HYDROmorphone HCL 2 MG/ML 1ML VIAL (J1170) As Ordered ONE (08:44)
[2020-08-26] MEDS ORDERED: SUGAMMADEX SODIUM 500 MG/5 ML VIAL (BRIDION) As Ordered ONE (08:44)
[2020-08-26] MEDS ORDERED: ePHEDrine SULFATE 25 MG/5 ML(5MG/ML) SYRINGE As Ordered ONE (08:44)
[2020-08-26] MEDS: LR 1,000 ML IV SCH (08:53)
--- NOTE | 2020-08-26 08:59 | IPNPDOC ---
Text Note Date of Service The patient was seen on 08/26/20. NOTE Patient came in with rectal bleeding. He has been in the hospital for 4 days now and no active bleeding since then. He was found to have an obstructing sigmoid colon mass right at about 20 cm and the secondary mass in the cecum. I biopsied this. Pathology not available yet but the obstructing lesion I am sure of his cancer and the cecal lesion is either large adenoma or cancer on that and this is not endoscopically removable. He will be brought in today to the OR for attem pted removal of both areas. He tolerated prep well last night though he did not have much output from this. Overall patient remains stable, comfortable. Impression and plan: Rectal bleeding most likely from the sigmoid colon mass. This is near obstructing at about 8 cm long. Looks malignant. He has a secondary synchronous lesion in the cecum ureter large adenoma or also cancer. He'll be undergoing right colectomy as well as sigmoid colon resection with anastomosis today.I discussed with the patient the details of the proposed procedure, the benefits of performing the procedure, the most common risks on doing the procedure. This may include risks of the general anesthesia, risk of bleeding, infection, infection, surgical site infection, anastomotic leakage, injury to nearby bowels, blood vessels and structures including ureter on the left side. I have given him a chance to ask questions, voice out concerns. Patient has agreed to proceed VS,Pamela, I+O VS, Pamela, I+O Laboratory Tests 08/26/20 06:38 Vital Signs Date Time Temp Pulse Resp B/P (MAP) Pulse Ox O2 Delivery O2 Flow Rate FiO2 08/26/20 08:26 125/82 08/26/20 06:00 98.1 70 20 99 08/25/20 14:00 Room Air I&O- Last 24 Hours up to 6 AM 08/26/20 06:00 Intake Total 3830 ml Output Total 700 ml Balance 3130 ml FERMÍN SINGER MD Aug 26, 2020 08:59
[2020-08-26] MEDS: DULoxetine 30 MG CAP (CYMBALTA) PO SCH (09:00)
[2020-08-26] MEDS ORDERED: FLUoxetine 10 MG CAP PO SCH (09:00)
[2020-08-26] MEDS ORDERED: LIDOCAINE 1% SDV 30ML VIAL As Ordered ONE (09:30)
[2020-08-26] MEDS ORDERED: BUPIVACAINE HCL 0.25% 30ML VIAL As Ordered ONE (09:30)
[2020-08-26] MEDS ORDERED: cefoTEtan INJ 1GM VIAL (S0074 PER 500MG) As Ordered ONE ×2 (09:54→10:05)
[2020-08-26] MEDS ORDERED: GLYCOPYRROLATE INJ 0.2 MG/ML 2 ML VIAL As Ordered ONE (10:46)
[2020-08-26] MEDS ORDERED: BUPIVACAINE HCL 0.25% 10ML VIAL As Ordered ONE (10:51)
[2020-08-26] MEDS ORDERED: BUPIVACAINE LIPOSOME/PF 1.3% 20ML VIAL (13.3MG/ML)(EXPAREL)(C9290 PER1MG) As Ordered ONE (10:51)
[2020-08-26] MEDS ORDERED: cefoTEtan DISODIUM 2 GM in D5W MINI-BAG PLUS 50 ML IV ONE (11:00)
[2020-08-26] MEDS ORDERED: metroNIDAZOLE 500 MG in IV 1 EA IV ONE (12:00)
[2020-08-26] MEDS ORDERED: METOCLOPRAMIDE INJ 10MG/2ML VIAL (J2765 PER 1) IV PRN (19:00)
[2020-08-26] MEDS ORDERED: oxyCODONE 5MG TAB PO PRN (19:00)
[2020-08-26] MEDS ORDERED: ONDANSETRON 4MG/2ML VIAL IV PRN (19:00)
[2020-08-26] MEDS ORDERED: LR 1,000 ML IV SCH (19:00)
[2020-08-26] MEDS ORDERED: HYDROMORPHONE HCL 0.5 MG/ 0.5 ML SYRINGE (J1170 PER 1) IV PRN (19:00)
[2020-08-26] MEDS ORDERED: fentaNYL 100 MCG/2 ML INJECTION (J3010) As Ordered ONE (19:14)
[2020-08-26] MEDS: fentaNYL 100 MCG/2 ML INJECTION (J3010) IV PRN ×4 (19:16→19:32)
[2020-08-26] MEDS ORDERED: HYDROMORPHONE HCL 0.5 MG/ 0.5 ML SYRINGE (J1170 PER 1) As Ordered ONE (19:48)
[2020-08-26 20:35] VITALS: BP 140/88
[2020-08-26 21:05] VITALS: BP 140/88
[2020-08-26 22:05] VITALS: BP 139/89
[2020-08-26 23:05] VITALS: BP 140/93
[2020-08-26] MEDS: ACETAMINOPHEN TAB 650MG DOSE (2X325MG) PO PRN (23:56)
[2020-08-27] VITALS (8 sets, daily range): BP systolic 142–158; BP diastolic 82–93
[2020-08-27] MEDS: LR 1,000 ML IV SCH ×4 (01:11→23:15)
[2020-08-27] MEDS: ACETAMINOPHEN TAB 650MG DOSE (2X325MG) PO PRN (01:12)
[2020-08-27] MEDS: LORazepam 1 MG TAB PO PRN (03:55)
[2020-08-27] MEDS ORDERED: oxyBUTYnin 5 MG TAB PO ONE (04:15)
[2020-08-27] MEDS: MORPHINE 2 MG/ML 1ML VIAL (J2270) IV PRN ×2 (04:26→08:29)
[2020-08-27] MEDS: HumaLOG INSULIN (NovoLOG) PER UNIT SC SCH ×4 (07:30→21:00)
[2020-08-27 07:45] LABS: HEMOGLOBIN 12.9 g/dl (13.5-17.5); MEAN CORPUSCULAR HEMOGLOBIN 26.2 pg (27.0-33.0); MEAN CORPUSCULAR HGB CONC 32.3 g/dl (32.0-36.5); MEAN CORPUSCULAR VOLUME 81.3 fl (80.0-96.0); PLATELET COUNT, AUTOMATED 339 10^3/uL (150-450); RED BLOOD COUNT 4.92 10^6/uL (4.30-6.10); WHITE BLOOD COUNT 14.2 10^3/uL (4.0-10.0)
--- NOTE | 2020-08-27 07:47 | ROOPDOC ---
[facility] Report Of Operation Report of Operation DATE OF PROCEDURE: 08/26/20 PREPROCEDURE DIAGNOSES: Near obstructing, bleeding sigmoid colon mass (malignant appearing), mass at cecum (large adenoma vs malignancy). POSTPROCEDURE DIAGNOSES: same. PROCEDURE: Robotic assisted laparoscopic Right colectomy with ileocolic anastomosis, sigmoid colon resection with proctocolic anastomosis (EEA 29), Transversus abdominis plane block with (exparel/marcaine), laparoscopic guided. SURGEON: Josef Helton MD PHYSICAL INSTRUCTOR: Mary Jo Trinidad NP assited with the set up of the robot, placement of ports, management of the instruments and arms on the field while I was at the surgeons console, retraction of bowel and suctioning. Tio Alvarez DO assisted with the sigmoid colon portion with the proctocolic transanal anastomosis, flexible sigmoidoscopy, extraction of the s pecimen and closure of the incisions ANESTHESIA: General Anesthesia. ESTIMATED BLOOD LOSS: Approximately 50 mL. COMPLICATIONS: none, hemodynamically stable, extubated. SPECIMEN: 1. right colon 2. sigmoid colon 3. periaortic lymph node (beyond the FARHAN division) PROCEDURE NOTE: Patient is 45 year old male admitted for GI bleeding found to have a mass in the sigmoid colon, some mucosal abnormality in the cecum on CT, underwent colonoscopy confirming a malignant appearing near obstructing mass in the sigmoid colon and either a large nonresectable flat adenoma int he cecum or possibly a synchronous malignant lesion in the cecum. DESCRIPTION OF PROCEDURE: Patient was given a dose of Invanz 1 g IV preoperatively for wound prophylaxis. He underwent bowel prep last night including oral antibiotics using neomycin and metronidazole. He was brought to the operating room, placed supine on the table. After induction of general endotracheal anesthesia, he was placed in a lithotomy position on Eddie stirrups with both arms tucked on his sides with the pressure points padded. He received 5000 units of heparin preoperatively subcutaneously for DVT prophylaxis as well as compression boots and TEDs in both his lower extremities. A Junior catheter was inserted.Time-outs were performed using both preinduction and pre-incision safety checklists to verify correct patient, procedure, site, and additional critical information prior to beginning the procedure. Entry to the abdomen done via Veress needle technique over the patient's left upper quadrant area. Intra-abdominal placement confirmed with saline drop techni que and pneumoperitoneum to a pressure 15 mmHg was achieved. Direct visualization with laparoscope, an 8 mm robotic trocar was placed at the same incision. Insertion site was inspected for injury and none was found. He was placed on a 10 Trendelenburg position tilted towards the left side and I planned to perform the right colectomy first. I established my working ports along the oblique line from the first port going towards the suprapubic area. I placed my 12 mm ports over at the left upper quadrant midclavicular line, my camera port just underneath the umbilicus and another 8 mm port at the suprapubic area. I placed a 5 mm triage assistant port over the left lower quadrant area in between my 2 low as ports. I marked a spot over the right lower quadrant area roughly about 4 cm medial to the anterior superior iliac spine for placement of a 12 mm port later on for the sigmoid colon surgery. . Under laparoscopic guidance bilateral Transversus abdominis plane blocks were used with Exparel and Marcaine. The da Amalia Xi tower was positioned in place over the patient's right side and the trochars docked to the robotic arms. The instruments were placed in position under direct vision. I unscrubbed and went over the surgeons console to control the camera and instruments. My triage assistant remained on the field for management of the robotic arms and instrument exchanges as well as for retraction. On diagnostic laparoscopy, no evidence for any masses or nodularities on the liver and omentum and peritoneum. There was no free ascites. I could see my in the ink marking distal to the sigmoid: Mass which is noticeably bulky distending the proximal sigmoid and descending colon. There is evidence for enlarged lymph nodes along the path of the inferior mesenteric artery. No visible masses noted over the right colon. The appendix is visualized mildly thickened but not inflamed or distended. No visible enlarged lymph nodes along the course of the ileocolic artery. The bowel was retracted out of the right lower quadrant area. I started with the right colectomy with a medial to lateral approach. The cecum was tented up towards the anterior abdomen to delineate the course of the ileocolic vessels. The peritoneum overlying the area was opened up medially and lifted off the Toldt's fascia covering the retroperitoneum exposing the course of the duodenum. This was mostly bluntly dissected off the duodenum lifting the right colon mesentery away from the area with blunt dissection. The ileocolic vessels were circumferentially dissected and clipped off with 3 hemoclips and divided with the Synchroseal energy device. After dividing the ileocolic vessels medially and the retroperitoneum was bluntly dissected off the top portion of the duodenum and I proceeded superiorly and up towards the hepatic flexure. After adequate dissection to the hepatic flexure and left the piece of cottonoid for later identification. I then switched to a supero-lateral dissection. The omentum was divided off the midportion of the transverse colon well retracting the transve rse colon inferiorly. I proceeded going laterally continued to divide the omentum and gastrocolic ligament off the transverse colon. The attachments of the hepatic flexure to the lateral wall, liver, retroperitoneum was likewise divided under direct vision aided by the identification of the cottonoid underneath the hepatic flexure. After freeing up the hepatic flexure, the lateral attachments of the ascending colon and cecum was divided along the line of Toldt proceeding also to free up the lateral and retroauricular attachments of the terminal ileum. I then came back to the my mesenteric dissection were the ileocolic artery was divided. The remnants of the mesentery proceeding towards the distal ileum was then divided with the energy device marking about 7-8 cm from the terminal ileum. I cleaned off the mesentery at this area. I then used a 45 mm stapler with a blue load to divide the distal ileum. Again, him back on over the right colon mesentery, the mesentery was divided with the energy device now proceeding superiorly towards the transverse colon. I chose an area at the proximal transverse colon well away from the cecum where the mass was visualized. The remaining gastrocolic ligament and omentum as well as the mesentery underneath the bowel was cleared off at this area. I then used ICG to verify adequate perfusion has my chosen site of resection at the transverse colon. This was again divided with 2 firings of the 45 mm stapler with a blue load. The remnants of the right colon and hepatic flexure attachments of the retroperitoneum then easily divided. I temporarily placed the right colon specimen on top of the liver. The surgical site was irrigated and inspected for proper hemostasis. The remaining attachments of the distal ileum to the retro-became was freed up to allow it to rotate superiorly towards the transverse colon. I then aligned the distal ileum and transverse colon for a [id number] isoperistaltic anastomosis. The anticipated site for anastomosis on the colon was cleared off remaining omentum and gastrocolic attachments. I placed a single 3-0 silk suture at the end to overlying the small bowel and transverse colon together. I then created an enterocolostomy with the laparoscopic scissors. I used initially a single 45 mm blue stapler for [id number] anastomosis. When I inspected the anastomosis part of the stapler seem to have caught part of the backside of the colon at taching part of the medial lip of the enterocolotomy attached to the colon. This made the size of the [id number] anastomosis much shorter. I again fired another 45 mm blue staple to extend my [id number]-fz-[id number] anastomosis. The anastomosis was checked for bleeding as well as adequacy of the size and orientation of both bowels. I tried to free up the medial lip of the colotomy for closure but this was well attached. I decided to incorporate this to my enterocolostomy closure. I used a 20V LOC 12 inches to close the enterocolostomy starting at the medial portion of the enterocolostomy and as mentioned incorporating the part of the adhered colon to my closure in a running shireen fashion going towards the more proximal portion of the anastomosis. I then ran a separate 20V LOC 12 inches going the opposite way starting from the more proximal anastomosis going towards the crotch or inferior portion of the anastomotic closure as a second layer in a running Lembert fashion. I checked the adequacy of the closure and tested this under water as well as also tested the perfusion of the anastomosis with another ICG. I did not see any leak and the area of the anastomosis had good perfusion and not under tension. I used 3-0 Vicryl to tack some of the nearby omentum on top of the anastomosis. After completing the right colectomy portion, the robot was temporarily undocked to the trochars and the rotated the bone 180 in preparation for the sigmoid colon resection. With this repositioning the robot tower was then docked once more after repositioning the patient to about a 20 Trendelenburg position now tilted towards the right side. An additional 12 mm port was placed at the previously marked area over the he right lower quadrant area medial to the anterior superior iliac spine. I then proceeded with the sigmoid colon resection. Tattoo melissa distal to the sigmoid colon is visualized in this is at the top portion of the rectum. The mesentery was floppy. The mass itself is quite bulky. I could see some enlarged lymph nodes along the path of the inferior mesenteric artery and even medial, past the FARHAN. Probably either at the left colic or by the aorta. The left colon is distended due to the near obstructing tumor. The sigmoid colon was lifted anteriorly towards the abdominal wall on the left side. The peritoneum overlying the medial side of the sacral promontory was opened up proceeding superiorly towards the ligament of Treitz. The course of the FARHAN was identified and the mesentery was bluntly dissected free of the retroperitoneum along Toldt's fascia in a medial to lateral approach. I continued following the course of the FARHAN proximally. This was circumferentially dissected sweeping the mesentery proximally. I proceeded going proximally and was able to identify the course of the ureter making sure the sigmoid colon mesentery was swept away from the ureter. I placed a piece of cottonoid on top of this underneath the mesentery for later lateral identification. Again this was clipped 3 times and divided with the energy device. With this I switched to a lateral to medial dissection. The sigmoid colon was reflected medially and the peritoneal attachments of the sigmoid colon along the abdominal wall as well as the pelvis was divided aided by the identification of the cottonoid that I left underneath the mesentery. I proceeded going superiorly but with the length of the descending colon, did not feel like he needed to release fully the splenic flexure. Some of the lateral attachments of the splenic flexure was likewise released. After disclike came back and proceeded distally lifting the sigmoid colon and dividing the mesocolic attachments were trying to preserve the hypogastric nerves in the area. I proceeded going distally past the tattoo markings roughly about 5 cm away from where I could feel the lowest point of the sigmoid colon mass as which places me to the midportion of the rectum. By lifting the rectum anteriorly the plane of the mesial rectum was divided from the areolar tissue attaching this to the sacrum and proceeding both medially and distally. Once an adequate length was achieved the anterior peritoneum and lateral attachments of the rectum was likewise divided. Without coning, the mesorectum was divided at the chosen area of resection within the energy device. I used a 45 mm stapler with a green load this time to divide the rectum at this area which required 2 firings of the stapler. After detaching the rectum I continued freeing up the descending colon to test the reach of the descending colon. After adequate medial dissection, the sigmoid colon was divided at about the level of the division of the inferior mesenteric artery by again dividing the meso colon with energy device and clearing the area at the line of transection well away from the mass proximally. Again the use ICG to test for adequacy of perfusion. This was again divided with 2 firings of a 45 mm stapler with a green load. At this point he came back to where I could see to bulky lymph nodes lateral to the aorta and I removed this and sent this as a separate specimen. Once the lymph nodes has the Christina ink to it. At this point I asked Dr. Alvarez to assist me with the proximal colic anastomosis. He scrubbed in and placed the anvil of the 29 mm EEA stapler intra-abdominally through the previous suprapubic port site. The staple line at the edge of the proximal stump of the descending colon was opened up and removed. The anvil was placed and secured with a pursestring of 20 few LOC. A second pursestring was used to cinch the handle of the anvil in place. The epiploic attachments were the staple line Was cleared off. Dr. Alvarez then came down to insert the handle of the stapler transanally. The spike was deployed at the anterior edge of the staple line of the rectum. The anvil and stapler was engaged and I checked the orientation of the descending colon. The staple was fired and checked for donuts which were intact both proximally and distally with slight thinning of the proximal portion of the donuts. He then performed flexible sigmoidoscopy to the level of the anastomosis and anastomosis was tested under water. There was a full staple line with no active bleeding and no signs of leakage. I used ICG to check the perfusion of the anastomosis which was adequate. 's point I scrubbed back in and Dr. Alvarez re-scrubbed. We extracted both specimens through a Pfannenstiel incision roughly about 5 cm at the line of the suprapubic port. An Pankaj wound retractor was placed. The right colon was easily extracted but sigmoid colon proved to be quite bulky and I had to enlarge the incision further. After extraction of the specimen, we then closed our incision in 2 layers using 2-0 Vicryl to close the peritoneum and posterior sheath and a running fashion and a #0 Stratafix to close the anterior fascia. I doubled back on the strafix to secure the closure. The abdomen was deflated, all ports removed. The 12 mm ports were closed additionally with 0 vicryl at the fascia. All port incisions and the extraction site was closed with radha. Sterile gauze dressings and tape placed on top of the closed incisions. Patient tolerated the procedure well, he was promptly awakened, extubated and brought to recovery room in stable condition. JOSEF HELTON MD Aug 27, 2020 07:47
--- NOTE | 2020-08-27 07:50 | IPNPDOC ---
Text Note Date of Service The patient was seen on 08/27/20. NOTE Patient is POD1 after a long procedure with combined right colectomy and sigmoid colon resection. Pain control issues overnight. Plan: adjust pain meds: will place him on scheduled doses of toradol IV, acetamenophen PO ambulate VS,Fishbone, I+O VS, Fishbone, I+O Laboratory Tests 08/27/20 07:11 Vital Signs Date Time Temp Pulse Resp B/P (MAP) Pulse Ox O2 Delivery O2 Flow Rate FiO2 08/27/20 06:00 97.6 73 18 146/93 (110) 100 Nasal Cannula 2.0 I&O- Last 24 Hours up to 6 AM 08/27/20 06:00 Intake Total 4267 ml Output Total 985 ml Balance 3282 ml FERMÍN SINGER MD Aug 27, 2020 07:50
[2020-08-27 08:07] LABS: BLOOD UREA NITROGEN 14 MG/DL (7-18); CALCIUM LEVEL 8.3 MG/DL (8.5-10.1); CARBON DIOXIDE LEVEL 29 MEQ/L (21-32); CHLORIDE LEVEL 103 MEQ/L (98-107); CREATININE FOR GFR 0.81 MG/DL (0.70-1.30); GLOMERULAR FILTRATION RATE > 60.0 (>60); GLUCOSE, FASTING 155 MG/DL (70-100); POTASSIUM SERUM 4.3 MEQ/L (3.5-5.1); SODIUM LEVEL 137 MEQ/L (136-145)
[2020-08-27] MEDS: DULoxetine 30 MG CAP (CYMBALTA) PO SCH (08:27)
[2020-08-27] MEDS: ACETAMINOPHEN TAB 650MG DOSE (2X325MG) PO SCH ×4 (08:28→21:35)
[2020-08-27] MEDS: KETOROLAC 30 MG/ML 1ML VIAL IV SCH ×3 (08:28→20:54)
[2020-08-27] MEDS: ALVIMOPAN 12 MG CAPSULE (ENTEREG) PO SCH ×2 (10:39→21:35)
[2020-08-27] MEDS: oxyCODONE 5MG TAB PO PRN ×2 (12:10→17:10)
--- NOTE | 2020-08-27 15:25 | IPNPDOC ---
Text Note Date of Service The patient was seen on 08/27/20. NOTE Subjective: No any acute events overnight. Patient complains of abdominal pain 7 out of 10. No nausea, no vomiting GENERAL APPEARANCE: NAD HEENT: no scleral icterus, no JVD, EOMI CARDIOVASCULAR: S1S2 LUNGS: CTA ABDOMEN: soft , moderately tender around surgical wounds MUSCULOSKELETAL: no cyanosis, no swelling INTEGUMENT: no generalized pallor NEUROLOGICAL: cranial nerve function from 2-12 intact intact, follows commands, speech not dysarthric Patient is 44 years old male with past medical history of polysubstance abuse, diabetes type 2, hypertension presented to the hospital with lower GI bleed. Patient stated that for past 2 days he has been having intermittent stool with red blood. Patient has never had his symptoms before. In ER patient was found to have positive orthostatic vital signs, he developed fall in emergency room and hit his head. CT head negative. CT abdomen and pelvis was done and showed Short segment of significant sigmoid colon thickening with eccentric masslike intraluminal structure coupled with surrounding increased vascularity and numerous enlarged lymph nodes suspicious for neoplastic process. Similar findings but to lesser extent seen in the cecum and proximal ascending colon where colitis is a possibility. Problems (1) GI bleed Most likely lower GI bleed secondary to malignancy CT scan positive for sigmoid colon thickening with eccentric masslike intraluminal structure coupled with surrounding increased vascularity and numerous enlarged lymph nodes suspicious for neoplastic process. Similar findings but to lesser extent seen in the cecum and proximal ascending colon where colitis is a possibility Surgical team consulted patient. Colonoscopy was done on 08/24/20. It shows The perianal and digital rectal examinations were normal. A fungating large mass was found in the sigmoid colon. The mass was circumferential. The mass measured eight cm in length with contact bleeding, stigmata of previous bleed Await biopsy result CT chest negative for metastasis Dr. Helton performed right colectomy and sigmoid colon resection on 08/27/20 Pain management Colon cancer Follow-up with oncologist in the outpatient settings Hemoglobin stable Continue to monitor Diabetes mellitus HbA1c 6.3 Insulin sliding scale IV drug abuse Social service on board Hypertension Norvasc 10 mg DAYLIN (acute kidney injury) Resolved Anxiety/depression Patient has drug abuse history and stated that he has been suffering from anxiety Follow-up with psychiatrist in the outpatient settings Fluoxetine 10 mg daily VS,Fishbone, I+O VS, Fishbone, I+O Laboratory Tests 08/27/20 07:11 Vital Signs Date Time Temp Pulse Resp B/P (MAP) Pulse Ox O2 Delivery O2 Flow Rate FiO2 08/27/20 14:00 98.1 69 18 146/90 (108) 97 Room Air 08/27/20 10:00 2.0 I&O- Last 24 Hours up to 6 AM 08/27/20 06:00 Intake Total 4267 ml Output Total 985 ml Balance 3282 ml BERNADETTE COLBERT DO Aug 27, 2020 15:25
[2020-08-28] MEDS: KETOROLAC 30 MG/ML 1ML VIAL IV SCH ×4 (01:17→20:02)
[2020-08-28] MEDS: ACETAMINOPHEN TAB 650MG DOSE (2X325MG) PO SCH ×6 (01:17→20:02)
[2020-08-28 02:00] VITALS: BP 142/88
[2020-08-28] MEDS: oxyCODONE 5MG TAB PO PRN (05:10)
[2020-08-28 06:00] VITALS: BP 150/88
[2020-08-28] MEDS: HumaLOG INSULIN (NovoLOG) PER UNIT SC SCH ×4 (07:30→20:01)
[2020-08-28 08:25] LABS: HEMATOCRIT 36.4 % (42.0-52.0); HEMOGLOBIN 11.5 g/dl (13.5-17.5); MEAN CORPUSCULAR HGB CONC 31.6 g/dl (32.0-36.5); MEAN CORPUSCULAR VOLUME 82.4 fl (80.0-96.0); PLATELET COUNT, AUTOMATED 299 10^3/uL (150-450); RED BLOOD COUNT 4.42 10^6/uL (4.30-6.10); WHITE BLOOD COUNT 9.2 10^3/uL (4.0-10.0)
[2020-08-28 08:44] LABS: BLOOD UREA NITROGEN 14 MG/DL (7-18); CALCIUM LEVEL 8.2 MG/DL (8.5-10.1); CARBON DIOXIDE LEVEL 27 MEQ/L (21-32); CHLORIDE LEVEL 107 MEQ/L (98-107); CREATININE FOR GFR 0.77 MG/DL (0.70-1.30); GLOMERULAR FILTRATION RATE > 60.0 (>60); GLUCOSE, FASTING 105 MG/DL (70-100); MAGNESIUM LEVEL 2.1 MG/DL (1.8-2.4); POTASSIUM SERUM 4.1 MEQ/L (3.5-5.1); SODIUM LEVEL 138 MEQ/L (136-145)
[2020-08-28] MEDS: ALVIMOPAN 12 MG CAPSULE (ENTEREG) PO SCH ×2 (08:51→20:01)
[2020-08-28] MEDS: DULoxetine 30 MG CAP (CYMBALTA) PO SCH (08:51)
--- NOTE | 2020-08-28 09:13 | IPNPDOC ---
Text Note Date of Service The patient was seen on 08/28/20. NOTE Patient is postop day 2 following right colectomy and sigmoid colectomy. He reports pain is much better controlled, was able to get sleep last night. Reports fairly comfortable and has been passing a lot of flatus. No bowel movements yet. His burping also has stopped. He denies any nausea or vomiting. He has been afebrile postop. Vital signs MAXIMUM TEMPERATURE 98.3 81 17 150/88 97% at room air Examination Was sleeping when I entered the room, weight up easily, looks comfortable Awake, alert, oriented Lung sounds are clear to auscultation bilaterally without wheezing Regular heart rate and rhythm Abdomen is soft, relatively flat, decreased amount of distention from yesterday. Port site incisions including the extraction site dressing at the suprapubic area are clean, dry and intact. Nontender on palpation, remains mildly tympanitic Impression and plan Near obstructing sigmoid colon mass/malignancy Right colon mass Postop day 2 status post robotic-assisted laparoscopic right colectomy, sigmoid colectomy Held advance him to a low residue diet. I'll maintain him on senna. Have instructed them to ambulate the hallways at least 3 times today. Continue curren t pain regimen for now. Pathology is pending. We will order Lovenox for DVT prophylaxis. VS,Fishbone, I+O VS, Fishbone, I+O Laboratory Tests 08/28/20 08:05 Vital Signs Date Time Temp Pulse Resp B/P (MAP) Pulse Ox O2 Delivery O2 Flow Rate FiO2 08/28/20 06:13 16 08/28/20 06:00 98.3 81 150/88 (108) 97 Room Air 08/27/20 10:00 2.0 I&O- Last 24 Hours up to 6 AM 08/28/20 06:00 Intake Total 3180 ml Output Total 2900 ml Balance 280 ml FERMÍN SINGER MD Aug 28, 2020 09:13
[2020-08-28] MEDS: ENOXAPARIN 40MG/0.4ML SYRINGE (J1650 PER 10MG) SC SCH (10:38)
[2020-08-28 14:00] VITALS: BP 100/54
--- NOTE | 2020-08-28 17:27 | IPNPDOC ---
Text Note Date of Service The patient was seen on 08/28/20. NOTE Subjective: Patient stated that he feels better today, no abdominal pain. Po stoperative day 2 GENERAL APPEARANCE: NAD HEENT: no scleral icterus, no JVD, EOMI CARDIOVASCULAR: S1S2 LUNGS: CTA ABDOMEN: soft , moderately tender around surgical wounds MUSCULOSKELETAL: no cyanosis, no swelling INTEGUMENT: no generalized pallor NEUROLOGICAL: cranial nerve function from 2-12 intact intact, follows commands, speech not dysarthric Patient is 44 years old male with past medical history of polysubstance abuse, diabetes type 2, hypertension presented to the hospital with lower GI bleed. Patient stated that for past 2 days he has been having intermittent stool with red blood. Patient has never had his symptoms before. In ER patient was found to have positive orthostatic vital signs, he developed fall in emergency room and hit his head. CT head negative. CT abdomen and pelvis was done and showed Short segment of significant sigmoid colon thickening with eccentric masslike intraluminal structure coupled with surrounding increased vascularity and numerous enlarged lymph nodes suspicious for neoplastic process. Similar findings but to lesser extent seen in the cecum and proximal ascending colon where colitis is a possibility. Problems (1) GI bleed Most likely lower GI bleed secondary to malignancy CT scan positive for sigmoid colon thickening with eccentric masslike intraluminal structure coupled with surrounding increased vascularity and numerous enlarged lymph nodes suspicious for neoplastic process. Similar findings but to lesser extent seen in the cecum and proximal ascending colon where colitis is a possibility Surgical team consulted patient. Colonoscopy was done on 08/24/20. It shows The perianal and digital rectal examinations were normal. A fungating large mass was found in the sigmoid colon. The mass was circumferential. The mass measured eig ht cm in length with contact bleeding, stigmata of previous bleed Await biopsy result CT chest negative for metastasis Dr. Helton performed right colectomy and sigmoid colon resection on 08/27/20 Pain management Incentive spirometer Colon cancer Follow-up with oncologist in the outpatient settings Hemoglobin stable Continue to monitor Diabetes mellitus HbA1c 6.3 Insulin sliding scale IV drug abuse Social service on board Hypertension Norvasc 10 mg DAYLIN (acute kidney injury) Resolved Anxiety/depression Patient has drug abuse history and stated that he has been suffering from anxiety Follow-up with psychiatrist in the outpatient settings Continue duloxetine VS,Fishbone, I+O VS, Fishbone, I+O Laboratory Tests 08/28/20 08:05 Vital Signs Date Time Temp Pulse Resp B/P (MAP) Pulse Ox O2 Delivery O2 Flow Rate FiO2 08/28/20 14:00 98.1 74 18 100/54 (69) 97 Room Air 08/27/20 10:00 2.0 I&O- Last 24 Hours up to 6 AM 08/28/20 06:00 Intake Total 3180 ml Output Total 2900 ml Balance 280 ml BERNADETTE COLBERT DO Aug 28, 2020 17:27
[2020-08-28] MEDS ORDERED: SENOKOT S TAB PO SCH (21:00)
[2020-08-28 22:00] VITALS: BP 118/76
[2020-08-29] MEDS: KETOROLAC 30 MG/ML 1ML VIAL IV SCH ×4 (01:32→21:15)
[2020-08-29] MEDS: ACETAMINOPHEN TAB 650MG DOSE (2X325MG) PO SCH ×6 (01:33→21:16)
[2020-08-29 06:00] VITALS: BP 118/65
[2020-08-29 06:18] LABS: HEMATOCRIT 33.8 % (42.0-52.0); HEMOGLOBIN 10.8 g/dl (13.5-17.5); MEAN CORPUSCULAR HEMOGLOBIN 26.2 pg (27.0-33.0); PLATELET COUNT, AUTOMATED 285 10^3/uL (150-450); RED BLOOD COUNT 4.12 10^6/uL (4.30-6.10); WHITE BLOOD COUNT 7.9 10^3/uL (4.0-10.0)
[2020-08-29 06:39] LABS: BLOOD UREA NITROGEN 15 MG/DL (7-18); CALCIUM LEVEL 8.4 MG/DL (8.5-10.1); CARBON DIOXIDE LEVEL 27 MEQ/L (21-32); CHLORIDE LEVEL 107 MEQ/L (98-107); CREATININE FOR GFR 0.74 MG/DL (0.70-1.30); GLOMERULAR FILTRATION RATE > 60.0 (>60); GLUCOSE, FASTING 91 MG/DL (70-100); POTASSIUM SERUM 3.6 MEQ/L (3.5-5.1); SODIUM LEVEL 138 MEQ/L (136-145)
[2020-08-29] MEDS: HumaLOG INSULIN (NovoLOG) PER UNIT SC SCH ×4 (07:30→21:00)
[2020-08-29] MEDS ORDERED: POTASSIUM CHLORIDE 10 MEQ SR TABLET PO ONE (08:30)
[2020-08-29] MEDS: DULoxetine 30 MG CAP (CYMBALTA) PO SCH (08:35)
[2020-08-29] MEDS: ENOXAPARIN 40MG/0.4ML SYRINGE (J1650 PER 10MG) SC SCH (08:36)
--- NOTE | 2020-08-29 11:00 | IPNPDOC ---
Text Note Date of Service The patient was seen on 08/29/20. NOTE Patient continues to do well following laparoscopic right colectomy and sigmoid colectomy for 2 synchronous lesions in his colon. He has had multiple loose stools yesterday and overnight. He reports passing a lot of flatus. He is tolerating solid diet. He reports he is ambulating the hallways. Denies any shortness of breath, chest pain, severe abdominal discomfort VS: afebrile, Tmax 98.5 98.5 82 17 118/65 98% room air Examination Patient was sleeping when I entered the room, wakes up easily, comfortably. Reports no severe abdominal discomfort. Appears comfortable Lung sounds are clear to auscultation bilaterally, no wheezing Regular heart rate and rhythm without murmurs Abdomen is soft, no noticeable severe distention. His skin and pannus is loose most likely from weight loss. Multiple port sites with radha on that are clean dry and intact. I removed the postoperative dressings. No active drainage. No surrounding skin cellulitis. Minimal tender at the extraction site of the suprapubic area with otherwise no rebound or guarding No significant extremity edema Impression and plan He is now postop day 3 following a robotic-assisted laparoscopic right colectomy and sigmoid colectomy for synchronous lesions on the sigmoid colon and cecum. He was admitted for lower GI bleed most likely from the sigmoid colon mass. He appears to be stable and recovering accordingly. He is tolerating regular food. Have stopped the anterior egg as well as the Senokot to address the diarrhea. He continues to do well anticipate that he will be able to go home this weekend. His pathology is pending. If he does go home, arrange for follow- up with me in 2 weeks' time for removal of radha as well as to update him on his pathology results. Most likely will need an outpatient consultation with the oncology service whether it be for surveillance or for adjuvant therapy. This is yet to be determined pending the result of the pathology. VS,Fishbone, I+O VS, Fishbone, I+O Laboratory Tests 08/29/20 05:51 Vital Signs Date Time Temp Pulse Resp B/P (MAP) Pulse Ox O2 Delivery O2 Flow Rate FiO2 08/29/20 06:00 98.5 82 17 118/65 (82) 98 Room Air 08/27/20 10:00 2.0 I&O- Last 24 Hours up to 6 AM0 08/29/20 06:00 Intake Total 2130 ml Output Total 1650 ml Balance 480 ml FERMÍN SINGER MD Aug 29, 2020 11:00
[2020-08-29 14:00] VITALS: BP 120/64
--- NOTE | 2020-08-29 16:52 | IPNPDOC ---
Text Note Date of Service The patient was seen on 08/29/20. NOTE Subjective: Patient stated that he is doing better today. Postoperative day 3 GENERAL APPEARANCE: NAD HEENT: no scleral icterus, no JVD, EOMI CARDIOVASCULAR: S1S2 LUNGS: CTA ABDOMEN: soft , moderately tender around surgical wounds MUSCULOSKELETAL: no cyanosis, no swelling INTEGUMENT: no generalized pallor NEUROLOGICAL: cranial nerve function from 2-12 intact intact, follows commands, speech not dysarthric Patient is 44 years old male with past medical history of polysubstance abuse, diabetes type 2, hypertension presented to the hospital with lower GI bleed. Patient stated that for past 2 days he has been having intermittent stool with red blood. Patient has never had his symptoms before. In ER patient was found to have positive orthostatic vital signs, he developed fall in emergency room and hit his head. CT head negative. CT abdomen and pelvis was done and showed Short segment of significant sigmoid colon thickening with eccentric masslike intraluminal structure coupled with surrounding increased vascularity and numerous enlarged lymph nodes suspicious for neoplastic process. Similar findings but to lesser extent seen in the cecum and proximal ascending colon where colitis is a possibility. Problems (1) GI bleed Most likely lower GI bleed secondary to malignancy CT scan positive for sigmoid colon thickening with eccentric masslike intraluminal structure coupled with surrounding increased vascularity and numerous enlarged lymph nodes suspicious for neoplastic process. Similar findings but to lesser extent seen in the cecum and proximal ascending colon where colitis is a possibility Surgical team consulted patient. Colonoscopy was done on 08/24/20. It shows The perianal and digital rectal examinations were normal. A fungating large mass was found in the sigmoid colon. The mass was circumferential. The mass measured eight cm in length with contact bleeding, stigmata of previous bleed Await biopsy result CT chest negative for metastasis Dr. Helton performed right colectomy and sigmoid colon resection on 08/27/20 Pain management Incentive spirometer Anticipated discharge on weekend Colon cancer Follow-up with oncologist in the outpatient settings Hemoglobin stable Continue to monitor Diabetes mellitus HbA1c 6.3 Insulin sliding scale IV drug abuse Social service on board Hypertension Norvasc 10 mg DAYLIN (acute kidney injury) Resolved Anxiety/depression Patient has drug abuse history and stated that he has been suffering from anxiety Follow-up with psychiatrist in the outpatient settings Continue duloxetine VS,Fishbone, I+O VS, Fishbone, I+O Laboratory Tests 08/29/20 05:51 Vital Signs Date Time Temp Pulse Resp B/P (MAP) Pulse Ox O2 Delivery O2 Flow Rate FiO2 08/29/20 14:00 98.4 74 17 120/64 (82) 100 Room Air 08/27/20 10:00 2.0 I&O- Last 24 Hours up to 6 AM 08/29/20 06:00 Intake Total 2130 ml Output Total 1650 ml Balance 480 ml BERNADETTE COLBERT DO Aug 29, 2020 16:52
[2020-08-29 22:00] VITALS: BP 145/92
[2020-08-30] MEDS: ACETAMINOPHEN TAB 650MG DOSE (2X325MG) PO SCH ×3 (01:26→09:48)
[2020-08-30] MEDS: KETOROLAC 30 MG/ML 1ML VIAL IV SCH (01:27)
[2020-08-30 06:00] VITALS: BP 145/91
[2020-08-30 06:12] LABS: HEMATOCRIT 32.8 % (42.0-52.0); MEAN CORPUSCULAR HEMOGLOBIN 25.1 pg (27.0-33.0); MEAN CORPUSCULAR HGB CONC 30.5 g/dl (32.0-36.5); MEAN CORPUSCULAR VOLUME 82.2 fl (80.0-96.0); PLATELET COUNT, AUTOMATED 288 10^3/uL (150-450); RED BLOOD COUNT 3.99 10^6/uL (4.30-6.10); WHITE BLOOD COUNT 7.2 10^3/uL (4.0-10.0)
[2020-08-30 06:25] LABS: BLOOD UREA NITROGEN 15 MG/DL (7-18); CALCIUM LEVEL 8.5 MG/DL (8.5-10.1); CARBON DIOXIDE LEVEL 25 MEQ/L (21-32); CHLORIDE LEVEL 108 MEQ/L (98-107); CREATININE FOR GFR 0.72 MG/DL (0.70-1.30); GLOMERULAR FILTRATION RATE > 60.0 (>60); GLUCOSE, FASTING 113 MG/DL (70-100); MAGNESIUM LEVEL 1.7 MG/DL (1.8-2.4); POTASSIUM SERUM 3.8 MEQ/L (3.5-5.1); SODIUM LEVEL 140 MEQ/L (136-145)
[2020-08-30] MEDS: HumaLOG INSULIN (NovoLOG) PER UNIT SC SCH (07:23)
[2020-08-30] MEDS ORDERED: METAMUCIL (PSYLLIUM) PACKET PO SCH (09:00)
[2020-08-30] MEDS: ENOXAPARIN 40MG/0.4ML SYRINGE (J1650 PER 10MG) SC SCH (09:00)
[2020-08-30] MEDS ORDERED: NICO21PAT TD (09:37)
[2020-08-30] MEDS ORDERED: SENN-52 PO (09:37)
[2020-08-30] MEDS ORDERED: CYMB1CAP5 PO (09:37)
[2020-08-30] MEDS ORDERED: META1POW PO (09:37)
[2020-08-30] MEDS: DULoxetine 30 MG CAP (CYMBALTA) PO SCH (09:48)
--- NOTE | 2020-08-30 20:30 | DS.PDOC ---
Discharge Summary General Date of Admission Aug 22, 2020 at 08:52 Date of Discharge 08/30/2020 Discharge Summary PRIMARY CARE PHYSICIAN: Janet Cavanaugh PLSQL DEVELOPER ATTENDING AT TIME OF DISCHARGE: Dr. Eliot Shipley, DO DISCHARGE DIAGNOSES: Colon cancer, high-grade dysplasia GI bleed secondary to malignancy Anemia secondary to GI bleed Diabetes mellitus type 2 IV drug abuse Hypertension Acute kidney injury Anxiety Depression HPI & HOSPITAL COURSE: Presented to hospital lower GI bleed, patient was reporting intermittent stool with red blood. CT of the abdomen and pelvis showed sigmoid colon thickening with masslike structure and increased vascularity, as well as numerous enlarged lymph nodes concerning for neoplastic process. Surgery was consulted and robotic-assisted laparoscopic right colectomy with ileocolic anastomosis/sigmoid colon resection with proctocolic anastomosis was performed. He had a few issues with pain control the first night, but otherwise his postoperative course was essentially uncomplicated. He is tolerating his diet well, and has multiple bowel movements, and is no longer in pain. Patient appears to be stable for d ischarge at this time. Patient was not on any home medications prior to this admission, however he was started on duloxetine for the treatment of anxiety and depression which seems to be working well for him, this will be continued upon discharge. PHYSICAL EXAMINATION ON DISCHARGE: GENERAL: Awake, alert, no apparent distress. CARDIOVASCULAR EXAMINATION: Regular rate and rhythm, with no rubs, gallops, or murmur. RESPIRATORY EXAMINATION: Clear to auscultation bilaterally with no wheezes, rales, or rhonchi. ABDOMINAL EXAMINATION: Soft, nontender, nondistended. Bowel sounds present. Multiple laparoscopic surgical incisions on the abdomen are healing well, radha are still in place, no surrounding erythema at any of the sites. No signs of infection. EXTREMITIES: No clubbing or edema noted. 2+ pulses in the radial bilaterally. DISPOSITION: Home DISCHARGE INSTRUCTIONS: Follow-up with Dr. Helton for staple removal in 2 weeks. Patient will also need to schedule an appointment at the [facility] for follow-up regarding colon cancer to determine need for surveillance versus adjuvant therapy. Lymph node biopsies are still pending at this time, however this will not be managed as an inpatient regardless. Diet as tolerated. Activity as tolerated. If symptoms return, or if you experience worsening of your symptoms, please call your doctor or return to the emergency department. ITEMS THAT NEED OUTPATIENT FOLLOWUP: Lymph node biopsies are still pending Vital Signs/I&Os Vital Signs Date Time Temp Pulse Resp B/P (MAP) Pulse Ox O2 Delivery O2 Flow Rate FiO2 08/30/20 06:00 98.9 66 18 145/91 (109) 99 Room Air 08/27/20 10:00 2.0 I&O- Last 24 Hours up to 6 AM 08/30/20 06:00 Intake Total 1620 ml Output Total 0 ml Balance 1620 ml Laboratory Data Labs 24H Laboratory Tests 2 08/30/20 05:05: Bedside Glucose (Misc Panel) 93 08/30/20 05:49: Nucleated Red Blood Cells % (auto) 0.0, Anion Gap 7L, Glomerular Filtration Rate > 60.0, Calcium Level 8.5, Magnesium Level 1.7L CBC/BMP Laboratory Tests 08/30/20 05:49 FSBS Laboratory Tests Test 08/30/20 05:05 Range/Units Bedside Glucose (Misc Panel) 93 70-105 MG/DL Discharge Medications Scheduled Duloxetine Hcl (Cymbalta) 30 Mg Capsule.dr, 60 MG PO DAILY Psyllium Husk/Aspartame (Metamucil Fiber Singles Packet) 3.4 Gm Powd.pack, 1 PKT PO DAILY Sennosides/Docusate Sodium (Senna Plus Tablet) 1 Each Tablet, 2 TAB PO QHS Scheduled PRN Nicotine (Nicotine Patch) 21 Mg Patch.td24, 1 PATCH TD DAILYPRN PRN for NICOTINE WITHDRAWAL Allergies Coded Allergies: No Known Allergies (Unverified , 07/04/17) ELIOT SHIPLEY DO Aug 30, 2020 20:30
== END 2020-08-30 10:05 | disposition home or self-care (01) | DRG 221 ==
LOC: M ED 04:30 → M ED INP 08:52 → ENRESERV 10:57 → M MSPAV 11:40
PROVIDERS: ADMIT Internal Medicine; ATTEND Neuromusculoskeletal Medicine & OMM
PROC: 0DBH8ZX Excision of Cecum, Via Natural or Artificial Opening Endoscopic, Diagnostic (ICD-10-PCS; 2020-08-24)
PROC: 0DBN8ZX Excision of Sigmoid Colon, Via Natural or Artificial Opening Endoscopic, Diagnostic (ICD-10-PCS; 2020-08-24)
PROC: 0DBN8ZX Excision of Sigmoid Colon, Via Natural or Artificial Opening Endoscopic, Diagnostic (ICD-10-PCS; principal; 2020-08-24 08:00)
PROC: 0DTK4ZZ Resection of Ascending Colon, Percutaneous Endoscopic Approach (ICD-10-PCS; 2020-08-26)
PROC: 0DTN4ZZ Resection of Sigmoid Colon, Percutaneous Endoscopic Approach (ICD-10-PCS; 2020-08-26)
PROC: 8E0W4CZ Robotic Assisted Procedure of Trunk Region, Percutaneous Endoscopic Approach (ICD-10-PCS; 2020-08-26)
DX: C18.7 Malignant neoplasm of sigmoid colon (principal); N17.9 Acute kidney failure, unspecified; K92.1 Melena; F19.10 Other psychoactive substance abuse, uncomplicated; E11.9 Type 2 diabetes mellitus without complications; I10 Essential (primary) hypertension; F41.9 Anxiety disorder, unspecified; F32.9 Major depressive disorder, single episode, unspecified

== ENCOUNTER 2020-11-29 10:11 | Emergency (ER) | payer OTHER ==
[~2020-11-29] VITALS: Ht 185.4 cm; Wt 96.3 kg
[~2020-11-29 10:11] MED LIST changes: +CYMB1CAP5 PO; -LISI-542 PO; +LISI-898 PO; +META1POW PO; +NEUR600T PO; +NICO21PAT TD; +SENN-52 PO
[2020-11-29] MEDS ORDERED: METF10004 (10:26)
[2020-11-29] MEDS ORDERED: GABA-282 (10:26)
[2020-11-29] MEDS ORDERED: CLINDAMYCIN 900 MG in IV 1 EA IV ONE (10:50)
[2020-11-29] MEDS ORDERED: BOOSTRIX/ADACEL VACCINE (DIPHTH/PERTUSS/ACELL/TETANUS) 0.5ML SYR IM ONE (10:50)
[2020-11-29 11:12] LABS: BASO % 0.6 % (0.0-1.0); EOS # 0.3 10^3/uL (0.0-0.5); EOS % 4.5 % (0.0-3.0); HEMATOCRIT 41.9 % (42.0-52.0); HEMOGLOBIN 13.7 g/dl (13.5-17.5); LYMPH # 1.9 10^3/uL (1.5-5.0); LYMPH % 28.8 % (24.0-44.0); MEAN CORPUSCULAR HEMOGLOBIN 26.4 pg (27.0-33.0); MEAN CORPUSCULAR HGB CONC 32.7 g/dl (32.0-36.5); MEAN CORPUSCULAR VOLUME 80.9 fl (80.0-96.0); MONO # 0.8 10^3/uL (0.0-0.8); MONO % 12.2 % (2.0-8.0); NEUTROPHILS # 3.4 10^3/uL (1.5-8.5); NEUTROPHILS % 52.1 % (36.0-66.0); PLATELET COUNT, AUTOMATED 298 10^3/uL (150-450); RED BLOOD COUNT 5.18 10^6/uL (4.30-6.10); WHITE BLOOD COUNT 6.5 10^3/uL (4.0-10.0)
[2020-11-29 11:37] LABS: BLOOD UREA NITROGEN 10 MG/DL (7-18); CALCIUM LEVEL 8.9 MG/DL (8.5-10.1); CARBON DIOXIDE LEVEL 27 MEQ/L (21-32); CHLORIDE LEVEL 107 MEQ/L (98-107); CREATININE FOR GFR 0.71 MG/DL (0.70-1.30); GLOMERULAR FILTRATION RATE > 60.0 (>60); GLUCOSE, FASTING 152 MG/DL (70-100); POTASSIUM SERUM 4.2 MEQ/L (3.5-5.1); SODIUM LEVEL 138 MEQ/L (136-145)
--- NOTE | 2020-11-29 11:47 | REP ---
INDICATION: assess abscess--left arm infection COMPARISON: None TECHNIQUE: B-mode grayscale and color ultrasound examination using linear and curved array transducers. FINDINGS: Directed ultrasound examination the left upper extremity demonstrates a complex collection measuring 7.7 x 0.9 x 5.5 cm with increased flow and surrounding edema. Findings are compatible with infectious/inflammatory process and suspected abscess. IMPRESSION: 1. Findings consistent with infectious/inflammatory process and suspected abscess. <Electronically signed by Andrew Robertson > 11/29/20 1142
[2020-11-29] MEDS ORDERED: LIDOCAINE 1% MDV 20ML VIAL SC ONE (12:00)
[2020-11-29 12:45] VITALS: BP 135/81
[2020-11-29] MEDS ORDERED: CLEO300C2 PO (12:57)
== END 2020-11-29 13:07 | disposition home or self-care (01) ==
LOC: EEVIPCON 10:11 → M ED 10:11
DX: L02.414 Cutaneous abscess of left upper limb (principal); L03.114 Cellulitis of left upper limb; G47.33 Obstructive sleep apnea (adult) (pediatric); Z85.038 Personal history of other malignant neoplasm of large intestine; E11.9 Type 2 diabetes mellitus without complications

== ENCOUNTER 2022-05-02 12:28 | Emergency (ER) | payer OTHER ==
[~2022-05-02] VITALS: Ht 185.4 cm; Wt 100.9 kg
[2022-05-02 12:28] VITALS: BP 119/66
[~2022-05-02 12:28] MED LIST changes: +CLEO300C2 PO; +GABA-282; +GABA-283 PO; -GABA-845 PO; -LISI-898 PO; +LISI5TAB11 PO
== END 2022-05-02 13:30 | disposition left against medical advice (07) ==
LOC: M ED 12:28
DX: Z53.21 Procedure and treatment not carried out due to patient leaving prior to being seen by health care provider (principal)

== ENCOUNTER 2022-05-04 14:50 | Emergency (ER) | payer OTHER ==
[~2022-05-04] VITALS: Ht 185.4 cm; Wt 99.7 kg
[2022-05-04 18:21] LABS: BASO # 0.1 10^3/uL (0.0-0.2); BASO % 0.6 % (0.0-1.0); EOS # 0.5 10^3/uL (0.0-0.5); EOS % 4.9 % (0.0-3.0); HEMATOCRIT 40.2 % (42.0-52.0); HEMOGLOBIN 12.8 g/dl (13.5-17.5); LYMPH % 28.8 % (24.0-44.0); MEAN CORPUSCULAR HEMOGLOBIN 27.4 pg (27.0-33.0); MEAN CORPUSCULAR HGB CONC 31.8 g/dl (32.0-36.5); MEAN CORPUSCULAR VOLUME 85.9 fl (80.0-96.0); MONO # 1.3 10^3/uL (0.0-0.8); MONO % 11.9 % (2.0-8.0); NEUTROPHILS # 5.5 10^3/uL (1.5-8.5); NEUTROPHILS % 52.4 % (36.0-66.0); PLATELET COUNT, AUTOMATED 312 10^3/uL (150-450); RED BLOOD COUNT 4.68 10^6/uL (4.30-6.10); WHITE BLOOD COUNT 10.5 10^3/uL (4.0-10.0)
[2022-05-04 18:48] LABS: BLOOD UREA NITROGEN 23 MG/DL (7-18); C REACTIVE PROTEIN QUANTITATIV 5.11 MG/DL (0.00-0.30); CALCIUM LEVEL 9.1 MG/DL (8.5-10.1); CARBON DIOXIDE LEVEL 26 MEQ/L (21-32); CHLORIDE LEVEL 107 MEQ/L (98-107); CREATININE FOR GFR 1.02 MG/DL (0.70-1.30); GLOMERULAR FILTRATION RATE > 60.0 (>60); GLUCOSE, FASTING 117 MG/DL (70-100); POTASSIUM SERUM 4.9 MEQ/L (3.5-5.1); SODIUM LEVEL 135 MEQ/L (136-145)
[2022-05-04 19:02] LABS: ERYTHROCYTE SEDIMENTATION RATE 41 mm/hr (0-15)
[2022-05-04] MEDS ORDERED: LIDOCAINE W/EPINEPHRINE 1% 20ML VIAL SC ONE (19:30)
[2022-05-04] MEDS ORDERED: DALBAVANCIN 1,500 MG in D5W 250 ML IV ONE (20:00)
[2022-05-04 21:16] VITALS: BP 136/90
== END 2022-05-04 21:51 | disposition home or self-care (01) ==
LOC: M ED 14:50
DX: L02.212 Cutaneous abscess of back [any part, except buttock and flank] (principal); E11.9 Type 2 diabetes mellitus without complications; I10 Essential (primary) hypertension; E78.5 Hyperlipidemia, unspecified; G47.33 Obstructive sleep apnea (adult) (pediatric); J44.9 Chronic obstructive pulmonary disease, unspecified; F19.10 Other psychoactive substance abuse, uncomplicated; F17.200 Nicotine dependence, unspecified, uncomplicated; Z85.038 Personal history of other malignant neoplasm of large intestine
CPT/HCPCS: 10060; 76604; 80048; 83605; 85025; 85652; 86140; 87040; 87070; 87077; 87186; 87205; 87641; 96365; 96366; 99284; J0875

== ENCOUNTER 2023-08-13 21:56 | Inpatient (IN) | payer OTHER ==
[~2023-08-13] VITALS: Ht 185.4 cm; Wt 111.7 kg
[~2023-08-13 21:56] MED LIST changes: -GABA-283 PO; +GABA-284 PO
[2023-08-14 03:48] LABS: HEMATOCRIT 46.8 % (42.0-52.0); HEMOGLOBIN 16.3 g/dl (13.5-17.5); MEAN CORPUSCULAR HEMOGLOBIN 29.5 pg (27.0-33.0); MEAN CORPUSCULAR HGB CONC 34.8 g/dl (32.0-36.5); MEAN CORPUSCULAR VOLUME 84.8 fl (80.0-96.0); PLATELET COUNT, AUTOMATED 208 10^3/uL (150-450); RED BLOOD COUNT 5.52 10^6/uL (4.30-6.10); WHITE BLOOD COUNT 8.9 10^3/uL (4.0-10.0)
[2023-08-14 04:15] LABS: ETHYL ALCOHOL (ETHANOL) 0.008 % (0.000-0.010)
[2023-08-14 04:16] LABS: SALICYLATE LEVEL < 3.0 MG/DL (<30)
[2023-08-14 04:17] LABS: ALBUMIN 3.4 G/DL (3.2-5.2); ALKALINE PHOSPHATASE 107 U/L (46-116); ALT/SGPT 169 U/L (7.0-40); AST/SGOT 78 U/L (<34); BILIRUBIN,DIRECT 0.1 MG/DL (<0.4); BILIRUBIN,TOTAL 0.4 MG/DL (0.3-1.2); BLOOD UREA NITROGEN 17 MG/DL (9-23); CALCIUM LEVEL 8.8 MG/DL (8.5-10.1); CARBON DIOXIDE LEVEL 26 MMOL/L (20-31); CHLORIDE LEVEL 104 MMOL/L (98-107); GLOMERULAR FILTRATION RATE > 60.0 (>60); GLUCOSE, FASTING 232 MG/DL (60-100); POTASSIUM SERUM 4.1 MMOL/L (3.5-5.1); SODIUM LEVEL 139 MMOL/L (136-145); TOTAL PROTEIN 7.1 G/DL (5.7-8.2)
[2023-08-14 04:23] LABS: THYROID STIMULATING HORMONE 1.315 uIU/ML (0.55-4.78)
[2023-08-14 05:30] LABS: BARBITURATES URINE NEGATIVE (NEGATIVE); BENZODIAZEPINES URINE NEGATIVE (NEGATIVE); CANNABINOIDS URINE NEGATIVE (NEGATIVE); COCAINE METABOLITE URINE NEGATIVE (NEGATIVE); METHADONE URINE NEGATIVE (NEGATIVE); OPIATES URINE NEGATIVE (NEGATIVE); PHENCYCLIDINE URINE NEGATIVE (NEGATIVE)
[2023-08-14 05:34] LABS: AMPHETAMINES LEVEL URINE POSITIVE (NEGATIVE)
[2023-08-14] MEDS ORDERED: OLANZapine ORAL DISINTEGRATING TAB 5MG PO ONE (11:00)
[2023-08-14] MEDS ORDERED: PROHANCE 279.3MG/ML 5ML VIAL As Ordered ONE (12:16)
[2023-08-14] MEDS ORDERED: PROHANCE 279.3MG/ML 15ML VIAL As Ordered ONE (12:16)
[2023-08-15] MEDS ORDERED: GLUCAGON INJ 1MG VIAL SC PRN ×2 (10:00→15:30)
[2023-08-15] MEDS ORDERED: GLUCOSE 4GM CHEW TABLET PO PRN ×2 (10:00→15:30)
[2023-08-15] MEDS ORDERED: DEXTROSE 50% 50ML SYRINGE IV PRN ×2 (10:00→15:30)
[2023-08-15] MEDS ORDERED: INSULIN LISPRO (NovoLOG) PER UNIT SC SCH ×2 (12:00→21:00)
[2023-08-15] MEDS ORDERED: HOME MED LIST COMPLETE! XX SCH (15:15)
[2023-08-15 15:30] LABS: HEPATITIS B CORE ANTIBODY IGM NEGATIVE (NEGATIVE)
[2023-08-15] MEDS ORDERED: MAALOX 30 ML SUSP *UDC PO PRN (15:30)
[2023-08-15] MEDS ORDERED: ACETAMINOPHEN TAB 650MG DOSE (2X325MG) PO PRN (15:30)
[2023-08-15] MEDS ORDERED: IBUPROFEN 400MG TAB PO PRN (15:30)
[2023-08-15] MEDS ORDERED: diphenhydrAMINE 25MG CAP PO PRN (15:30)
[2023-08-15] MEDS ORDERED: LORazepam 2 MG TAB PO PRN (15:30)
[2023-08-15] MEDS ORDERED: MOM 30ML SUSPENSION UDC PO PRN (15:30)
[2023-08-15] MEDS ORDERED: OLANZapine ORAL DISINTEGRATING TAB 5MG PO PRN (15:30)
[2023-08-15 15:37] LABS: HEPATITIS C VIRUS ABY INDEX > 11.00 INDEX (<0.8)
[2023-08-15] MEDS: INSULIN LISPRO (NovoLOG) PER UNIT SC SCH ×2 (17:50→21:06)
[2023-08-15] MEDS: THIAMINE 100 MG TAB PO SCH (17:50)
[2023-08-15 18:03] VITALS: BP 123/85; TEMP 98.7; O2SAT 98
[2023-08-15] MEDS: traZODone 50 MG TAB PO PRN (21:03)
[2023-08-15 22:42] VITALS: BP 120/60
[2023-08-16 06:46] VITALS: BP 133/89; TEMP 98.3; O2SAT 97
[2023-08-16] MEDS: INSULIN LISPRO (NovoLOG) PER UNIT SC SCH ×4 (06:58→20:41)
[2023-08-16] MEDS: FOLIC ACID 1MG TAB PO SCH (08:56)
[2023-08-16] MEDS: MULTIVITAMINS/MINERALS THERAP 1 TAB PO SCH (08:56)
[2023-08-16] MEDS: THIAMINE 100 MG TAB PO SCH ×2 (08:56→20:42)
[2023-08-16] MEDS: NICOTINE 21MG/24HR 1 EA TRANSDERMAL TD SCH (08:57)
[2023-08-16] MEDS ORDERED: ENOXAPARIN 40MG/0.4ML SYRINGE (J1650 PER 10MG) SC SCH (09:00)
[2023-08-16] MEDS: OLANZapine 2.5MG TABLET PO SCH ×2 (10:42→20:42)
[2023-08-16] MEDS ORDERED: INFLUENZA QUADRIVALENT PF VACCINE 0.5ML SYRINGE IM.IMMUN ONE (13:00)
[2023-08-16 14:45] VITALS: BP 141/70
[2023-08-16 18:49] VITALS: BP 141/70; TEMP 97.6
[2023-08-16 20:00] VITALS: BP 134/76
[2023-08-16] MEDS: traZODone 50 MG TAB PO PRN (20:42)
[2023-08-16] MEDS ORDERED: LEVEMIR (INSULIN DETEMIR) 1 UNITS/0.01ML SC SCH (21:00)
[2023-08-17 06:15] VITALS: BP 127/76; TEMP 97.6; O2SAT 98
[2023-08-17] MEDS: INSULIN LISPRO (NovoLOG) PER UNIT SC SCH ×4 (06:51→20:07)
[2023-08-17 06:52] LABS: ALBUMIN 3.3 G/DL (3.2-5.2); BILIRUBIN,DIRECT 0.2 MG/DL (<0.4); BILIRUBIN,TOTAL 0.4 MG/DL (0.3-1.2); CHOLESTEROL RISK RATIO 4.32 (<5); HDL CHOLESTEROL 36.8 MG/DL (>40); LDL CHOLESTEROL 108.6 MG/DL (<100); NON-HDL-C 122.2 MG/DL; TOTAL PROTEIN 6.9 G/DL (5.7-8.2)
[2023-08-17] MEDS: NICOTINE 21MG/24HR 1 EA TRANSDERMAL TD SCH (09:00)
[2023-08-17] MEDS: LEVEMIR (INSULIN DETEMIR) 1 UNITS/0.01ML SC SCH ×2 (09:00→20:08)
[2023-08-17] MEDS: FOLIC ACID 1MG TAB PO SCH (09:01)
[2023-08-17] MEDS: MULTIVITAMINS/MINERALS THERAP 1 TAB PO SCH (09:01)
[2023-08-17] MEDS: OLANZapine 2.5MG TABLET PO SCH (09:01)
[2023-08-17] MEDS: THIAMINE 100 MG TAB PO SCH (09:01)
[2023-08-17 17:29] VITALS: BP 147/91; TEMP 98.8; O2SAT 97
[2023-08-17] MEDS: traZODone 50 MG TAB PO PRN (20:06)
[2023-08-17] MEDS: OLANZapine 10 MG TAB PO SCH (20:07)
[2023-08-18] MEDS: INSULIN LISPRO (NovoLOG) PER UNIT SC SCH ×4 (06:49→20:34)
[2023-08-18 06:54] VITALS: BP 139/91; TEMP 98.2; O2SAT 95
[2023-08-18 06:55] LABS: HEMOGLOBIN 15.5 g/dl (13.5-17.5); MEAN CORPUSCULAR HEMOGLOBIN 29.2 pg (27.0-33.0); MEAN CORPUSCULAR HGB CONC 33.7 g/dl (32.0-36.5); MEAN CORPUSCULAR VOLUME 86.6 fl (80.0-96.0); PLATELET COUNT, AUTOMATED 168 10^3/uL (150-450); RED BLOOD COUNT 5.31 10^6/uL (4.30-6.10); WHITE BLOOD COUNT 6.2 10^3/uL (4.0-10.0)
[2023-08-18 07:09] LABS: CHOLESTEROL RISK RATIO 4.35 (<5); HDL CHOLESTEROL 37.4 MG/DL (>40); NON-HDL-C 125.6 MG/DL
[2023-08-18] MEDS: LEVEMIR (INSULIN DETEMIR) 1 UNITS/0.01ML SC SCH (09:30)
[2023-08-18] MEDS: NICOTINE 21MG/24HR 1 EA TRANSDERMAL TD SCH (09:30)
[2023-08-18] MEDS: BENZTROPINE 1 MG TAB PO SCH ×2 (10:49→20:34)
[2023-08-18] MEDS: PROPRANOLOL 20 MG TAB PO SCH ×2 (10:50→20:34)
[2023-08-18] MEDS ORDERED: INSULIN LISPRO (NovoLOG) PER UNIT SC STA ×2 (12:31→15:26)
[2023-08-18 13:33] LABS: BEDSIDE GLUCOSE CONFIRMATION 526 MG/DL (LESS THAN 200); BLOOD UREA NITROGEN 13 MG/DL (9-23); CALCIUM LEVEL 8.9 MG/DL (8.5-10.1); CARBON DIOXIDE LEVEL 25 MMOL/L (20-31); CHLORIDE LEVEL 97 MMOL/L (98-107); GLOMERULAR FILTRATION RATE > 60.0 (>60); GLUCOSE, FASTING 526 MG/DL (60-100); POTASSIUM SERUM 4.5 MMOL/L (3.5-5.1); SODIUM LEVEL 128 MMOL/L (136-145)
[2023-08-18 16:17] VITALS: BP 135/81; TEMP 98.6; O2SAT 99
[2023-08-18] MEDS ORDERED: INSULIN LISPRO (NovoLOG) PER UNIT SC SCH (17:30)
[2023-08-18] MEDS: OLANZapine 10 MG TAB PO SCH (20:34)
[2023-08-18] MEDS ORDERED: LEVEMIR (INSULIN DETEMIR) 1 UNITS/0.01ML SC SCH (21:00)
[2023-08-19] MEDS: INSULIN LISPRO (NovoLOG) PER UNIT SC SCH ×7 (06:49→21:12)
[2023-08-19 06:58] VITALS: BP 133/84; TEMP 97.9; O2SAT 96
[2023-08-19] MEDS: PROPRANOLOL 20 MG TAB PO SCH ×2 (08:52→21:13)
[2023-08-19] MEDS: BENZTROPINE 1 MG TAB PO SCH ×2 (08:52→21:13)
[2023-08-19] MEDS: LEVEMIR (INSULIN DETEMIR) 1 UNITS/0.01ML SC SCH ×2 (08:53→21:12)
[2023-08-19] MEDS: NICOTINE 21MG/24HR 1 EA TRANSDERMAL TD SCH (08:53)
[2023-08-19 16:12] VITALS: BP 139/88; TEMP 98.6; O2SAT 96
[2023-08-19] MEDS: OLANZapine 10 MG TAB PO SCH (21:13)
[2023-08-19] MEDS: traZODone 50 MG TAB PO PRN (21:13)
[2023-08-20 06:15] VITALS: BP 123/76; TEMP 97.7; O2SAT 97
[2023-08-20] MEDS: INSULIN LISPRO (NovoLOG) PER UNIT SC SCH ×7 (06:51→20:25)
[2023-08-20] MEDS: NICOTINE 21MG/24HR 1 EA TRANSDERMAL TD SCH (09:00)
[2023-08-20] MEDS: BENZTROPINE 1 MG TAB PO SCH ×2 (09:30→20:16)
[2023-08-20] MEDS: LEVEMIR (INSULIN DETEMIR) 1 UNITS/0.01ML SC SCH ×2 (09:32→20:18)
[2023-08-20] MEDS: PROPRANOLOL 20 MG TAB PO SCH ×2 (09:32→20:17)
[2023-08-20 16:55] VITALS: BP 128/69; TEMP 97.4
[2023-08-20] MEDS: OLANZapine 10 MG TAB PO SCH (20:16)
[2023-08-20] MEDS: traZODone 50 MG TAB PO PRN (20:25)
[2023-08-21 05:59] VITALS: BP 107/71; TEMP 97.6; O2SAT 99
[2023-08-21 06:54] LABS: HEMATOCRIT 46.7 % (42.0-52.0); HEMOGLOBIN 15.7 g/dl (13.5-17.5); MEAN CORPUSCULAR HEMOGLOBIN 28.9 pg (27.0-33.0); MEAN CORPUSCULAR HGB CONC 33.6 g/dl (32.0-36.5); PLATELET COUNT, AUTOMATED 164 10^3/uL (150-450); RED BLOOD COUNT 5.43 10^6/uL (4.30-6.10)
[2023-08-21] MEDS: INSULIN LISPRO (NovoLOG) PER UNIT SC SCH ×7 (07:08→20:03)
[2023-08-21] MEDS: NICOTINE 21MG/24HR 1 EA TRANSDERMAL TD SCH (09:00)
[2023-08-21] MEDS: BENZTROPINE 1 MG TAB PO SCH ×2 (09:23→20:02)
[2023-08-21] MEDS: LEVEMIR (INSULIN DETEMIR) 1 UNITS/0.01ML SC SCH ×2 (09:23→20:02)
[2023-08-21] MEDS: PROPRANOLOL 20 MG TAB PO SCH ×2 (09:24→20:02)
[2023-08-21 18:12] VITALS: BP 146/89; TEMP 99
[2023-08-21 19:56] VITALS: BP 125/89
[2023-08-21] MEDS: traZODone 50 MG TAB PO PRN (20:02)
[2023-08-21] MEDS: OLANZapine 10 MG TAB PO SCH (20:03)
[2023-08-22 06:23] VITALS: BP 141/74; TEMP 97.2; O2SAT 97
[2023-08-22] MEDS: INSULIN LISPRO (NovoLOG) PER UNIT SC SCH ×7 (06:46→20:40)
[2023-08-22] MEDS: NICOTINE 21MG/24HR 1 EA TRANSDERMAL TD SCH (09:00)
[2023-08-22] MEDS: LEVEMIR (INSULIN DETEMIR) 1 UNITS/0.01ML SC SCH ×2 (09:22→20:40)
[2023-08-22] MEDS: BENZTROPINE 1 MG TAB PO SCH ×2 (09:22→20:39)
[2023-08-22] MEDS: PROPRANOLOL 20 MG TAB PO SCH ×2 (09:24→20:39)
[2023-08-22 14:00] VITALS: BP 125/81; TEMP 98.1
[2023-08-22 20:31] VITALS: BP 130/68
[2023-08-22] MEDS: traZODone 50 MG TAB PO PRN (20:39)
[2023-08-22] MEDS: OLANZapine 10 MG TAB PO SCH (20:39)
[2023-08-23 06:46] VITALS: BP 143/70; TEMP 98.6; O2SAT 99
[2023-08-23] MEDS: INSULIN LISPRO (NovoLOG) PER UNIT SC SCH ×4 (06:54→11:59)
[2023-08-23 08:44] VITALS: BP 126/68
[2023-08-23] MEDS: LEVEMIR (INSULIN DETEMIR) 1 UNITS/0.01ML SC SCH (08:44)
[2023-08-23] MEDS: NICOTINE 21MG/24HR 1 EA TRANSDERMAL TD SCH (08:44)
[2023-08-23] MEDS: PROPRANOLOL 20 MG TAB PO SCH (08:44)
[2023-08-23] MEDS: BENZTROPINE 1 MG TAB PO SCH (08:44)
[2023-08-23] MEDS ORDERED: BENZ1TAB5 PO (09:57)
[2023-08-23] MEDS ORDERED: NICO21PAT TD (09:57)
[2023-08-23] MEDS ORDERED: TRAZ-252 PO (09:57)
[2023-08-23] MEDS ORDERED: PROP20TA PO (09:57)
[2023-08-23] MEDS ORDERED: OLAN1TAB20 PO (09:57)
[2023-08-23] MEDS ORDERED: GLUCMIS7 XX (10:28)
[2023-08-23] MEDS ORDERED: NOVO32MI SC (10:28)
[2023-08-23] MEDS ORDERED: BD SMIS8 XX (10:28)
[2023-08-23] MEDS ORDERED: INSU100I48 SQ (10:28)
[2023-08-23] MEDS ORDERED: [UNRECOGNIZED DRUG - CODE] XX (10:28)
[2023-08-23] MEDS ORDERED: INSU100I16 SQ (10:28)
[2023-08-23] MEDS ORDERED: [UNRECOGNIZED DRUG - CODE] XX (10:28)
[2023-08-23] MEDS ORDERED: LANC1COM MC (10:28)
== END 2023-08-23 12:24 | disposition home or self-care (01) | DRG 751 ==
LOC: M ED 21:56 → EEVIPCON 08-15 15:26 → M ED INP 08-15 15:26 → M PSY 08-15 18:01
PROVIDERS: ADMIT Student in an Organized Health Care Education/Training Program; ATTEND Student in an Organized Health Care Education/Training Program
DX: F29 Unspecified psychosis not due to a substance or known physiological condition (principal); F34.89 Other specified persistent mood disorders; R44.0 Auditory hallucinations; E11.9 Type 2 diabetes mellitus without complications; F17.200 Nicotine dependence, unspecified, uncomplicated; K76.0 Fatty (change of) liver, not elsewhere classified

== ENCOUNTER 2024-06-01 13:30 | Emergency (ER) | payer MEDICAID, OTHER ==
[~2024-06-01] VITALS: Ht 185.4 cm; Wt 95.5 kg
[~2024-06-01 13:30] MED LIST changes: +BD SMIS8 XX; +BENZ1TAB5 PO; +GLUCMIS7 XX; +INSU100I16 SQ; +INSU100I48 SQ; +LANC1COM MC; +NOVO32MI SC; +OLAN1TAB20 PO; +PROP20TA PO; +TRAZ-252 PO; +[UNRECOGNIZED DRUG - CODE] XX; +[UNRECOGNIZED DRUG - CODE] XX
[2024-06-01 13:47] VITALS: BP 114/62; TEMP 97.7; O2SAT 94
== END 2024-06-01 13:50 | disposition left against medical advice (07) ==
LOC: M ED 13:30
DX: Z53.21 Procedure and treatment not carried out due to patient leaving prior to being seen by health care provider (principal)

== ENCOUNTER 2025-03-14 12:35 | Emergency (ER) | payer MEDICAID, OTHER, SELFPAY ==
[~2025-03-14] VITALS: Ht 185.4 cm; Wt 96.4 kg
[~2025-03-14 12:35] MED LIST changes: +GABA-1172; -GABA-282
[2025-03-14 13:21] LABS: HEMATOCRIT 44.2 % (42.0-52.0); HEMOGLOBIN 15.3 g/dl (13.5-17.5); MEAN CORPUSCULAR HEMOGLOBIN 29.5 pg (27.0-33.0); MEAN CORPUSCULAR HGB CONC 34.6 g/dl (32.0-36.5); MEAN CORPUSCULAR VOLUME 85.2 fl (80.0-96.0); PLATELET COUNT, AUTOMATED 214 10^3/uL (150-450); RED BLOOD COUNT 5.19 10^6/uL (4.30-6.10); WHITE BLOOD COUNT 7.3 10^3/uL (4.0-10.0)
[2025-03-14] MEDS ORDERED: HOME MED LIST COMPLETE! XX SCH (13:35)
[2025-03-14 13:44] LABS: ETHYL ALCOHOL (ETHANOL) < 0.003 % (0.000-0.010)
[2025-03-14 13:45] LABS: SALICYLATE LEVEL < 3.0 MG/DL (<30)
[2025-03-14 13:47] LABS: THYROID STIMULATING HORMONE 1.139 uIU/ML (0.55-4.78)
[2025-03-14 13:52] LABS: BARBITURATES URINE NEGATIVE (NEGATIVE); BENZODIAZEPINES URINE NEGATIVE (NEGATIVE); CANNABINOIDS URINE NEGATIVE (NEGATIVE); METHADONE URINE NEGATIVE (NEGATIVE); OPIATES URINE NEGATIVE (NEGATIVE); PHENCYCLIDINE URINE NEGATIVE (NEGATIVE)
[2025-03-14 13:53] LABS: ALKALINE PHOSPHATASE 140 U/L (40-129); ALT/SGPT 270 U/L (7.0-40); AST/SGOT 121 U/L (<34); BILIRUBIN,DIRECT 0.2 MG/DL (<0.4); BILIRUBIN,TOTAL 0.6 MG/DL (0.3-1.2); BLOOD UREA NITROGEN 23 MG/DL (9-23); CALCIUM LEVEL 9.5 MG/DL (8.5-10.1); CARBON DIOXIDE LEVEL 26 MMOL/L (20-31); CHLORIDE LEVEL 101 MMOL/L (98-107); CREATININE FOR GFR 0.73 MG/DL (0.70-1.30); GLOMERULAR FILTRATION RATE > 90.0 (>60); GLUCOSE, FASTING 488 MG/DL (60-100); POTASSIUM SERUM 4.2 MMOL/L (3.5-5.1); SODIUM LEVEL 137 MMOL/L (136-145); TOTAL PROTEIN 7.5 G/DL (5.7-8.2)
[2025-03-14 13:54] LABS: AMPHETAMINES LEVEL URINE POSITIVE (NEGATIVE); COCAINE METABOLITE URINE POSITIVE (NEGATIVE)
[2025-03-14 14:45] LABS: HEMOGLOBIN A1c 12.1 % (4.0-6.0)
[2025-03-14] MEDS ORDERED: METF500T13 PO (16:44)
[2025-03-14] MEDS ORDERED: NOVO32MI SC (16:44)
[2025-03-14] MEDS ORDERED: [UNRECOGNIZED DRUG - CODE] MC (16:44)
[2025-03-14] MEDS ORDERED: LANTINJ4 SC (16:44)
[2025-03-14] MEDS ORDERED: BLOO-259 MC (16:44)
[2025-03-14] MEDS: HumuLIN R (REGULAR) INSULIN (NovoLIN R) **100 U/ML** PER UNIT SC ONE (16:57)
[2025-03-14 17:12] VITALS: BP 130/82; TEMP 97.7; O2SAT 98
== END 2025-03-14 17:16 | disposition home or self-care (01) ==
LOC: M ED 12:35
DX: F15.159 Other stimulant abuse with stimulant-induced psychotic disorder, unspecified (principal); E11.8 Type 2 diabetes mellitus with unspecified complications; I10 Essential (primary) hypertension; Z85.038 Personal history of other malignant neoplasm of large intestine; F17.200 Nicotine dependence, unspecified, uncomplicated
CPT/HCPCS: 80048; 80076; 80143; 80307; 82077; 83036; 84443; 85027; 96372; 99285; J1815

== ENCOUNTER → 2025-03-15 | Outpatient (REF) | payer MEDICAID, SELFPAY ==
[~2025-03-15] MED LIST changes: +BLOO-259 MC; +LANTINJ4 SC; +[UNRECOGNIZED DRUG - CODE] MC
[2025-03-15 18:41] LABS: HEPATITIS B SURFACE ANTIGEN NEGATIVE (NEGATIVE)
[2025-03-15 18:54] LABS: HIV 1&2 SCREEN NEGATIVE (NEGATIVE)
[2025-03-17 10:48] LABS: HEPATITIS A IgG TOTAL NON-REACTIVE (NON-REACTIVE); HEPATITIS B CORE ANTIBODY IGG NON-REACTIVE (NON-REACTIVE); HEPATITIS B SURF AB QUANT < 5 mIU/mL (> OR = 10)
[2025-03-19 14:39] LABS: HCV LOG10 6.82 Log IU/mL (NOT DETECTED)
[2025-03-20 21:08] LABS: HEPATITIS C VIRUS GENOTYPE 3 (.)
[2025-03-22 22:03] LABS: HCV GENOTYPE 3 (Not Detected)
[2025-03-26 12:55] LABS: ALPHA 2-MACROGLOBULINS,QN 290 mg/dL (106-279); ALT (SGPT) P5P 179 U/L (9-46); APOLIPOPROTEIN A-1 119 mg/dL (94-176); BILIRUBIN, TOTAL 0.6 mg/dL (0.2-1.2); FIBROSIS SCORE 0.85; FIBROSIS STAGE SEVERE FIBROSIS (F0); GGT 64 U/L (3-95); HAPTOGLOBIN 10 mg/dL (43-212); NECROINFLAM ACT SCORE 0.89
== END ==
LOC: M LAB REF 17:14
PROVIDERS: ATTEND Family Medicine Addiction Medicine
DX: B18.2 Chronic viral hepatitis C (principal)

== ENCOUNTER 2025-04-17 11:04 | Inpatient (IN) | payer MEDICAID, SELFPAY ==
[~2025-04-17] VITALS: Ht 185.4 cm; Wt 99.9 kg
[2025-04-17 11:36] LABS: KETONE, URINE AUTO RFX NEGATIVE (NEGATIVE); LEUKOCYTE ESTERASE UR AUTO RFX NEGATIVE (NEGATIVE); NITRITE, URINE AUTO RFX NEGATIVE (NEGATIVE); RBC, URINE AUTO RFX 1 /HPF (0-3); SQUAM EPITHELIAL CELL UR AURFX 0 /HPF (0-6); WBC, URINE AUTO RFX 1 /HPF (0-3)
[2025-04-17 14:36] LABS: VENOUS BASE EXCESS 1.0 (-2.0-2.0); VENOUS HCO3 27.0 MMOL/L (23.0-27.0); VENOUS O2 SATURATION 63.1 % (60.0-80.0); VENOUS PARTIAL PRESSURE CO2 48.2 mmHg (38.0-50.0); VENOUS PARTIAL PRESSURE O2 30.7 mmHg (30.0-50.0); VENOUS PH 7.366 UNITS (7.330-7.430); VENOUS STANDARD HCO3 24.5 MMOL/L; VENOUS TOTAL CO2 28.5 MMOL/L (24.0-28.0)
[2025-04-17 14:44] LABS: BASO # 0.0 10^3/uL (0.0-0.2); BASO % 0.3 % (0.0-1.0); EOS # 0.3 10^3/uL (0.0-0.5); EOS % 2.4 % (0.0-3.0); LYMPH # 1.7 10^3/uL (1.5-5.0); LYMPH % 16.1 % (24.0-44.0); MONO # 1.3 10^3/uL (0.0-0.8); MONO % 12.5 % (2.0-8.0); NEUTROPHILS # 7.1 10^3/uL (1.5-8.5); NEUTROPHILS % 68.3 % (36.0-66.0); PLATELET COUNT, AUTOMATED 186 10^3/uL (150-450)
[2025-04-17] MEDS: KETOROLAC 30 MG/ML 1 ML VIAL IV ONE (14:53)
[2025-04-17] MEDS: NS 500 ML IV ONE (14:53)
[2025-04-17] MEDS ORDERED: ISOVUE-370 76% 100 ML VIAL As Ordered ONE (15:07)
[2025-04-17] MEDS: MORPHINE 4 MG/ML 1 ML VIAL IV ONE (16:18)
[2025-04-17] MEDS ORDERED: HOME MED LIST COMPLETE! XX SCH (19:15)
[2025-04-17] MEDS ORDERED: VANCOMYCIN HCL 1,000 MG in IV FLUID PLACE HOLDER 1 EA IV SCH (19:25)
[2025-04-17] MEDS ORDERED: VANCOMYCIN HCL 1,000 MG in IV FLUID PLACE HOLDER 1 EA IV ONE (19:25)
[2025-04-17] MEDS: LIDOCAINE 2% 5 ML JELLY UROJET TOP ONE (19:26)
[2025-04-17] MEDS: CEFEPIME HCL 2 GM in DEXTROSE 5% (D5W) ADV/MINI-BAG 50 ML IV SCH (20:14)
[2025-04-17 20:34] LABS: ESTIMATED AVERAGE GLUCOSE 220.0 MG/DL (60-110)
[2025-04-17 20:35] LABS: BARBITURATES URINE NEGATIVE (NEGATIVE); BENZODIAZEPINES URINE NEGATIVE (NEGATIVE); COCAINE METABOLITE URINE NEGATIVE (NEGATIVE); METHADONE URINE NEGATIVE (NEGATIVE)
[2025-04-17 20:36] LABS: CANNABINOIDS URINE NEGATIVE (NEGATIVE); PHENCYCLIDINE URINE NEGATIVE (NEGATIVE)
[2025-04-17 20:37] LABS: AMPHETAMINES LEVEL URINE POSITIVE (NEGATIVE); OPIATES URINE POSITIVE (NEGATIVE)
[2025-04-17 20:38] LABS: ETHYL ALCOHOL (ETHANOL) < 0.003 % (0.000-0.010)
[2025-04-17 20:39] LABS: C REACTIVE PROTEIN QUANTITATIV 6.28 MG/DL (<1.0)
[2025-04-17 20:40] LABS: SALICYLATE LEVEL < 3.0 MG/DL (<30)
[2025-04-17 21:10] LABS: Trichomonas vaginalis (AMP) NOT DETECTED (NEGATIVE)
[2025-04-17 21:12] LABS: HIV 1&2 SCREEN NEGATIVE (NEGATIVE)
[2025-04-17 21:33] LABS: ALT/SGPT 51 U/L (7.0-40); AST/SGOT 29 U/L (<34); CALCIUM LEVEL 5.7 MG/DL (8.5-10.1); CARBON DIOXIDE LEVEL 21 MMOL/L (20-31); CHLORIDE LEVEL 113 MMOL/L (98-107); CREATININE FOR GFR 0.53 MG/DL (0.70-1.30); GLOMERULAR FILTRATION RATE > 90.0 (>60); MAGNESIUM LEVEL 1.2 MG/DL (1.8-2.4); POTASSIUM SERUM 3.2 MMOL/L (3.5-5.1); SODIUM LEVEL 142 MMOL/L (136-145)
[2025-04-17 21:34] LABS: GC DNA AMPLIFICATION NEGATIVE (NEGATIVE); HEPATITIS C VIRUS ABY INDEX > 11.00 INDEX (<0.8)
[2025-04-17] MEDS: VANCOMYCIN HCL 2,000 MG, VIAL MATE ADAPTER 1 EACH in NS 500 ML IV SCH (21:35)
[2025-04-17] MEDS ORDERED: NICOTINE 21 MG/24 HR 1 EA TRANSDERMAL TD PRN (22:00)
[2025-04-17] MEDS ORDERED: MORPHINE 2 MG/ML 1 ML VIAL IV PRN (22:00)
[2025-04-17] MEDS ORDERED: MAALOX 30 ML SUSP *UDC PO PRN (22:00)
[2025-04-17] MEDS ORDERED: NALOXONE INJ 0.4 MG/1 ML VIAL IV PRN (22:00)
[2025-04-17] MEDS ORDERED: DEXTROSE 50% 50 ML SYRINGE IV PRN (22:00)
[2025-04-17] MEDS ORDERED: MOM 30 ML SUSPENSION UDC PO PRN (22:00)
[2025-04-17] MEDS ORDERED: GLUCOSE 4 GM CHEW PO PRN (22:00)
[2025-04-17] MEDS ORDERED: ACETAMINOPHEN 325 MG TAB PO PRN (22:00)
[2025-04-17] MEDS ORDERED: GLUCAGON INJ 1 MG VIAL SC PRN (22:00)
[2025-04-17 22:36] VITALS: BP 149/84; TEMP 97.4; O2SAT 95
[2025-04-17] MEDS: POTASSIUM CHLORIDE 10MEQ SR TABLET PO ONE (22:52)
[2025-04-17] MEDS: MORPHINE 4 MG/ML 1 ML VIAL IV PRN (22:53)
[2025-04-17] MEDS: MAGNESIUM OXIDE 400 MG TAB PO ONE (22:53)
[2025-04-17] MEDS: MAG SULF 1GM/100ML (MAG RUN) 1 GM in IV 1 EA IV SCH (23:00)
[2025-04-18] MEDS: INSULIN LISPRO (NovoLOG) PER UNIT SC SCH
[2025-04-18 00:12] VITALS: BP 144/71; TEMP 97.5; O2SAT 94
[2025-04-18] MEDS: CALCIUM GLUCONATE 1,000 MG in DEXTROSE 5% (D5W) MINI-BAG PLU 100 ML IV ONE (01:04)
[2025-04-18] MEDS: LR 1,000 ML IV SCH (01:47)
[2025-04-18] MEDS: VANCOMYCIN HCL 1,000 MG, VIAL MATE ADAPTER 1 EACH in NS 250 ML IV SCH (04:39)
[2025-04-18 04:59] VITALS: BP 127/81; TEMP 98; O2SAT 95
[2025-04-18 07:14] LABS: PLATELET COUNT, AUTOMATED 203 10^3/uL (150-450)
[2025-04-18 07:38] LABS: ALT/SGPT 81 U/L (7.0-40); AST/SGOT 44 U/L (<34); CALCIUM LEVEL 8.5 MG/DL (8.5-10.1); CARBON DIOXIDE LEVEL 23 MMOL/L (20-31); CHLORIDE LEVEL 105 MMOL/L (98-107); CREATININE FOR GFR 0.62 MG/DL (0.70-1.30); GLOMERULAR FILTRATION RATE > 90.0 (>60); MAGNESIUM LEVEL 1.8 MG/DL (1.8-2.4); POTASSIUM SERUM 4.3 MMOL/L (3.5-5.1); SODIUM LEVEL 138 MMOL/L (136-145)
[2025-04-18] MEDS: PIPERACILLIN/TAZOBACTAM SOD 3.375 GM in DEXTROSE 5% (D5W) ADV/MINI-BAG 50 ML IV SCH (09:35)
[2025-04-18] MEDS: DOCUSATE SODIUM 100 MG CAPSULE PO SCH (09:35)
[2025-04-18] MEDS: POTASSIUM CHLORIDE 10MEQ SR TABLET PO SCH (09:35)
[2025-04-18] MEDS: MORPHINE 4 MG/ML 1 ML VIAL IV PRN (09:35)
[2025-04-18] MEDS: PANTOPRAZOLE 40MG VIAL IV SCH (09:36)
[2025-04-18] MEDS: MAGNESIUM OXIDE 400 MG TAB PO SCH (09:36)
[2025-04-18 12:00] VITALS: BP 134/85; TEMP 97.2; O2SAT 99
[2025-04-18] MEDS: KETOROLAC 30 MG/ML 1 ML VIAL IV SCH (12:59)
[2025-04-18 20:00] VITALS: BP 120/79; TEMP 98.6; O2SAT 99
[2025-04-19] VITALS (9 sets, daily range): BP systolic 109–141; BP diastolic 62–82; TEMP 97.4–98.8; O2SAT 95–99
[2025-04-19] MEDS: PERCOCET 5MG/325MG TAB PO PRN (00:05)
[2025-04-19 07:46] LABS: BASO # 0.0 10^3/uL (0.0-0.2); BASO % 0.3 % (0.0-1.0); EOS # 0.3 10^3/uL (0.0-0.5); EOS % 3.2 % (0.0-3.0); LYMPH # 1.6 10^3/uL (1.5-5.0); LYMPH % 16.7 % (24.0-44.0); MONO # 1.4 10^3/uL (0.0-0.8); MONO % 15.2 % (2.0-8.0); NEUTROPHILS # 6.0 10^3/uL (1.5-8.5); NEUTROPHILS % 64.1 % (36.0-66.0); PLATELET COUNT, AUTOMATED 208 10^3/uL (150-450)
[2025-04-19] MEDS ORDERED: MIDAZOLAM INJ 2 MG/2 ML VIAL As Ordered ONE (08:01)
[2025-04-19] MEDS ORDERED: LIDOCAINE 2% 100 MG/5 ML SDV (FOR ANES.) As Ordered ONE (08:01)
[2025-04-19 08:21] LABS: CALCIUM LEVEL 8.4 MG/DL (8.5-10.1); CARBON DIOXIDE LEVEL 26 MMOL/L (20-31); CHLORIDE LEVEL 104 MMOL/L (98-107); CREATININE FOR GFR 0.78 MG/DL (0.70-1.30); GLOMERULAR FILTRATION RATE > 90.0 (>60); POTASSIUM SERUM 4.3 MMOL/L (3.5-5.1); SODIUM LEVEL 139 MMOL/L (136-145)
[2025-04-19] MEDS ORDERED: ROCURONIUM BROMIDE 50MG/5ML VIAL As Ordered ONE (09:00)
[2025-04-19] MEDS ORDERED: PHENYLephrine 500MCG 5ML (100MCG/ML) SYRINGE As Ordered ONE (09:19)
[2025-04-19] MEDS ORDERED: ACETAMINOPHEN 1000MG/100ML IV BAG As Ordered ONE (09:24)
[2025-04-19] MEDS ORDERED: SUGAMMADEX SODIUM 500 MG/5 ML VIAL As Ordered ONE (09:28)
[2025-04-19] MEDS ORDERED: SUGAMMADEX SODIUM 200 MG/2 ML VIAL As Ordered ONE (09:29)
[2025-04-19] MEDS ORDERED: ONDANSETRON 4MG 2ML VIAL IV PRN (09:45)
[2025-04-19] MEDS ORDERED: HYDROMORPHONE HCL 0.5 MG/0.5 ML SYRINGE IV PRN (09:45)
[2025-04-19] MEDS ORDERED: ONDANSETRON 4MG 2ML VIAL As Ordered ONE (10:38)
[2025-04-19] MEDS ORDERED: dexAMETHasone 4 MG/ML 1 ML VIAL As Ordered ONE (10:38)
[2025-04-19] MEDS: VANCOMYCIN HCL 1,250 MG, VIAL MATE ADAPTER 1 EACH in NS 250 ML IV SCH (15:37)
[2025-04-20] VITALS: BP 108/55; TEMP 98.3; O2SAT 98
[2025-04-20 04:00] VITALS: BP 115/66; TEMP 98.1; O2SAT 98
[2025-04-20 07:10] LABS: BASO # 0.0 10^3/uL (0.0-0.2); BASO % 0.4 % (0.0-1.0); EOS # 0.4 10^3/uL (0.0-0.5); EOS % 6.3 % (0.0-3.0); LYMPH # 1.1 10^3/uL (1.5-5.0); LYMPH % 19.1 % (24.0-44.0); MONO # 0.8 10^3/uL (0.0-0.8); MONO % 14.0 % (2.0-8.0); NEUTROPHILS # 3.3 10^3/uL (1.5-8.5); NEUTROPHILS % 59.1 % (36.0-66.0); PLATELET COUNT, AUTOMATED 241 10^3/uL (150-450)
[2025-04-20 07:28] LABS: CALCIUM LEVEL 8.2 MG/DL (8.5-10.1); CARBON DIOXIDE LEVEL 26 MMOL/L (20-31); CHLORIDE LEVEL 107 MMOL/L (98-107); CREATININE FOR GFR 0.84 MG/DL (0.70-1.30); GLOMERULAR FILTRATION RATE > 90.0 (>60); POTASSIUM SERUM 4.4 MMOL/L (3.5-5.1); SODIUM LEVEL 142 MMOL/L (136-145)
[2025-04-20 08:00] VITALS: BP 110/68; TEMP 97.7; O2SAT 96
[2025-04-20] MEDS: ACETAMINOPHEN 500 MG TAB PO SCH (09:35)
[2025-04-20 12:00] VITALS: BP 115/85; TEMP 97.5; O2SAT 95
[2025-04-20] MEDS: MORPHINE 2 MG/ML 1 ML VIAL IV PRN (12:41)
[2025-04-20 16:28] LABS: HCV RNA QUANTITATION 3480000.0 IU/mL (NOT DETECTED); HCV RNA log10 6.54 Log IU/mL (NOT DETECTED)
[2025-04-20] MEDS: INSULIN LISPRO (NovoLOG) PER UNIT SC SCH ×2 (17:16→20:37)
[2025-04-20 20:33] VITALS: BP 127/75; TEMP 98.4; O2SAT 98
[2025-04-21 04:39] VITALS: BP 142/88; TEMP 98.2; O2SAT 99
[2025-04-21 06:46] LABS: BASO # 0.0 10^3/uL (0.0-0.2); BASO % 0.6 % (0.0-1.0); EOS # 0.4 10^3/uL (0.0-0.5); EOS % 8.3 % (0.0-3.0); LYMPH # 1.2 10^3/uL (1.5-5.0); LYMPH % 22.6 % (24.0-44.0); MONO # 0.7 10^3/uL (0.0-0.8); MONO % 13.4 % (2.0-8.0); NEUTROPHILS # 2.8 10^3/uL (1.5-8.5); NEUTROPHILS % 53.6 % (36.0-66.0); PLATELET COUNT, AUTOMATED 241 10^3/uL (150-450)
[2025-04-21 07:13] LABS: CALCIUM LEVEL 8.1 MG/DL (8.5-10.1); CARBON DIOXIDE LEVEL 26 MMOL/L (20-31); CHLORIDE LEVEL 106 MMOL/L (98-107); CREATININE FOR GFR 0.83 MG/DL (0.70-1.30); GLOMERULAR FILTRATION RATE > 90.0 (>60); POTASSIUM SERUM 4.2 MMOL/L (3.5-5.1); SODIUM LEVEL 139 MMOL/L (136-145)
[2025-04-21 12:00] VITALS: BP 129/77; TEMP 97.7; O2SAT 96
[2025-04-21] MEDS: GLIMEPIRIDE 2 MG TAB PO SCH (16:50)
[2025-04-21 20:08] VITALS: BP 115/64; TEMP 97.8; O2SAT 97
[2025-04-22 04:58] VITALS: BP 135/88; TEMP 97.7; O2SAT 95
[2025-04-22 07:29] LABS: BASO # 0.1 10^3/uL (0.0-0.2); BASO % 0.7 % (0.0-1.0); EOS # 0.5 10^3/uL (0.0-0.5); EOS % 6.5 % (0.0-3.0); LYMPH # 1.5 10^3/uL (1.5-5.0); LYMPH % 20.7 % (24.0-44.0); MONO # 0.9 10^3/uL (0.0-0.8); MONO % 13.0 % (2.0-8.0); NEUTROPHILS # 4.1 10^3/uL (1.5-8.5); NEUTROPHILS % 57.4 % (36.0-66.0); PLATELET COUNT, AUTOMATED 271 10^3/uL (150-450)
[2025-04-22 07:47] LABS: CALCIUM LEVEL 8.9 MG/DL (8.5-10.1); CARBON DIOXIDE LEVEL 27 MMOL/L (20-31); CHLORIDE LEVEL 105 MMOL/L (98-107); CREATININE FOR GFR 0.87 MG/DL (0.70-1.30); GLOMERULAR FILTRATION RATE > 90.0 (>60); POTASSIUM SERUM 4.3 MMOL/L (3.5-5.1); SODIUM LEVEL 140 MMOL/L (136-145)
[2025-04-22] MEDS ORDERED: MORPHINE 4 MG/ML 1 ML VIAL IV PRN (08:10)
[2025-04-22] MEDS ORDERED: SENNA 8.6 MG TAB PO PRN (08:15)
[2025-04-22 08:49] LABS: MAGNESIUM LEVEL 1.8 MG/DL (1.8-2.4)
[2025-04-22] MEDS: PANTOPRAZOLE 20 MG TAB PO SCH (09:19)
[2025-04-22 12:18] VITALS: BP 126/81; TEMP 98; O2SAT 98
[2025-04-22] MEDS ORDERED: SODIUM CHLORIDE 0.9% INJ 10 ML SYR IV PRN (16:55)
[2025-04-22] MEDS: PIPERACILLIN/TAZOBACTAM SOD 3.375 GM in DEXTROSE 5% (D5W) ADV/MINI-BAG 50 ML IV SCH (16:57)
[2025-04-22] MEDS: SODIUM CHLORIDE 0.9% INJ 10 ML SYR IV SCH (17:54)
[2025-04-22] MEDS: VANCOMYCIN HCL 1,250 MG, VIAL MATE ADAPTER 1 EACH in NS 250 ML IV SCH (17:54)
[2025-04-22 20:00] VITALS: BP 132/74; TEMP 98.2; O2SAT 96
[2025-04-23 04:56] VITALS: BP 142/90; TEMP 97.5; O2SAT 99
[2025-04-23 08:43] LABS: BASO # 0.0 10^3/uL (0.0-0.2); BASO % 0.5 % (0.0-1.0); EOS # 0.4 10^3/uL (0.0-0.5); EOS % 6.7 % (0.0-3.0); LYMPH # 1.6 10^3/uL (1.5-5.0); LYMPH % 23.9 % (24.0-44.0); MONO # 0.8 10^3/uL (0.0-0.8); MONO % 12.0 % (2.0-8.0); NEUTROPHILS # 3.6 10^3/uL (1.5-8.5); NEUTROPHILS % 54.9 % (36.0-66.0); PLATELET COUNT, AUTOMATED 270 10^3/uL (150-450)
[2025-04-23 09:11] LABS: CALCIUM LEVEL 8.6 MG/DL (8.5-10.1); CARBON DIOXIDE LEVEL 25 MMOL/L (20-31); CHLORIDE LEVEL 107 MMOL/L (98-107); CREATININE FOR GFR 0.83 MG/DL (0.70-1.30); GLOMERULAR FILTRATION RATE > 90.0 (>60); POTASSIUM SERUM 4.2 MMOL/L (3.5-5.1); SODIUM LEVEL 141 MMOL/L (136-145)
[2025-04-23] MEDS: AUGMENTIN 875 MG TAB PO SCH (09:31)
[2025-04-23] MEDS: DOXYCYCLINE HYCLATE 100 MG TABLET PO SCH (09:32)
[2025-04-23 11:54] VITALS: BP 111/71; TEMP 97.7; O2SAT 99
[2025-04-23] MEDS ORDERED: GLIM2TAB29 PO (12:42)
[2025-04-23] MEDS ORDERED: MAGN400T33 PO (12:42)
[2025-04-23] MEDS ORDERED: DOXY100T PO (12:42)
[2025-04-23] MEDS ORDERED: AMOX875T2 PO (12:42)
[2025-04-23] MEDS ORDERED: METR-265 PO (12:54)
[2025-04-23] MEDS ORDERED: METF10004 PO (12:56)
[2025-04-23] MEDS ORDERED: BACI1TAB20 PO (12:57)
== END 2025-04-23 16:00 | disposition home or self-care (01) | DRG 481 ==
LOC: M ED 11:04 → M ED INP 11:05 → CMPBEDREQ 18:53 → M MS4PR 22:25 → EEVIPCON 04-18 13:53 → OBSVTOIN 04-18 13:53
PROVIDERS: ADMIT Internal Medicine; ATTEND Internal Medicine
PROC: 0VBSXZZ Excision of Penis, External Approach (ICD-10-PCS; 2025-04-19)
PROC: 0V9S0ZZ Drainage of Penis, Open Approach (ICD-10-PCS; principal; 2025-04-19 09:00)
DX: N48.21 Abscess of corpus cavernosum and penis (principal); E11.65 Type 2 diabetes mellitus with hyperglycemia; I10 Essential (primary) hypertension; E83.42 Hypomagnesemia; E83.51 Hypocalcemia; J44.9 Chronic obstructive pulmonary disease, unspecified; G47.33 Obstructive sleep apnea (adult) (pediatric); K21.9 Gastro-esophageal reflux disease without esophagitis; F15.10 Other stimulant abuse, uncomplicated; F41.9 Anxiety disorder, unspecified; E78.5 Hyperlipidemia, unspecified; R51.9 Headache, unspecified; E87.6 Hypokalemia; B19.20 Unspecified viral hepatitis C without hepatic coma; Z90.49 Acquired absence of other specified parts of digestive tract; Z59.00 Homelessness unspecified; Z91.148 Patient's other noncompliance with medication regimen for other reason; Z85.038 Personal history of other malignant neoplasm of large intestine

== ENCOUNTER 2025-08-30 00:57 | Emergency (ER) | payer OTHER ==
[~2025-08-30] VITALS: Ht 185.4 cm; Wt 118.2 kg
[~2025-08-30 00:57] MED LIST changes: +AMOX875T2 PO; +BACI1TAB20 PO; +DOXY100T PO; +GLIM2TAB29 PO; +MAGN400T33 PO; +METF10004 PO; +METR-265 PO
[2025-08-30 02:01] LABS: APPEARANCE, URINE CLEAR (CLEAR); BACTERIA, URINE AUTO NEGATIVE (NEGATIVE); BILIRUBIN, URINE AUTO NEGATIVE (NEGATIVE); BLOOD, URINE BLOOD NEGATIVE (NEGATIVE); GLUCOSE, URINE (UA) AUTO 3+ mg/dL (NEGATIVE); KETONE, URINE AUTO NEGATIVE (NEGATIVE); LEUKOCYTE ESTERASE, URINE AUTO NEGATIVE (NEGATIVE); NITRITE, URINE AUTO NEGATIVE (NEGATIVE); PROTEIN, URINE AUTO NEGATIVE (NEGATIVE); RBC, URINE AUTO 1 /HPF (0-3); SPECIFIC GRAVITY URINE AUTO 1.018 (1.002-1.035); SQUAMOUS EPITHELIAL CELL UR AU 0 /HPF (0-6); UROBILINOGEN, URINE AUTO 0.2 mg/dL (0.0-2.0); WBC, URINE AUTO 0 /HPF (0-3)
[2025-08-30 05:54] LABS: PLATELET COUNT, AUTOMATED 166 10^3/uL (150-450)
[2025-08-30] MEDS: FIORICET TAB PO ONE (06:02)
[2025-08-30 06:25] LABS: ETHYL ALCOHOL (ETHANOL) 0.005 % (0.000-0.010)
[2025-08-30 06:26] LABS: SALICYLATE LEVEL < 3.0 MG/DL (<30)
[2025-08-30 06:28] LABS: ALT/SGPT 345 U/L (7.0-40); AST/SGOT 152 U/L (<34); CALCIUM LEVEL 9.9 MG/DL (8.5-10.1); CARBON DIOXIDE LEVEL 21 MMOL/L (20-31); CHLORIDE LEVEL 96 MMOL/L (98-107); CPK CREATINE PHOSPHOKINASE 63 U/L (46-171); CREATININE FOR GFR 0.67 MG/DL (0.70-1.30); GLOMERULAR FILTRATION RATE > 90.0 (>56); POTASSIUM SERUM 4.4 MMOL/L (3.5-5.1); SODIUM LEVEL 127 MMOL/L (136-145)
[2025-08-30 06:59] LABS: ESTIMATED AVERAGE GLUCOSE 321.0 MG/DL (60-110)
[2025-08-30] MEDS: HumuLIN R (REGULAR) INSULIN (NovoLIN R) **100 U/ML** PER UNIT IV ONE (07:44)
[2025-08-30] MEDS: NS (Normal Saline) 0.9% 1,000 ML IV ONE ×2 (07:45→09:28)
[2025-08-30 08:31] LABS: AMPHETAMINES LEVEL URINE NEGATIVE (NEGATIVE)
[2025-08-30 08:32] LABS: BENZODIAZEPINES URINE NEGATIVE (NEGATIVE); CANNABINOIDS URINE NEGATIVE (NEGATIVE); COCAINE METABOLITE URINE NEGATIVE (NEGATIVE); METHADONE URINE NEGATIVE (NEGATIVE); OPIATES URINE NEGATIVE (NEGATIVE); PHENCYCLIDINE URINE NEGATIVE (NEGATIVE)
[2025-08-30 08:47] LABS: BARBITURATES URINE POSITIVE (NEGATIVE)
[2025-08-30 10:46] VITALS: BP 118/83; TEMP 96.9
[2025-08-30 11:16] VITALS: O2SAT 95
== END 2025-08-30 11:30 | disposition home or self-care (01) ==
LOC: M ED 00:57
DX: E11.65 Type 2 diabetes mellitus with hyperglycemia (principal); R44.3 Hallucinations, unspecified; K21.9 Gastro-esophageal reflux disease without esophagitis; G47.30 Sleep apnea, unspecified; E78.5 Hyperlipidemia, unspecified; I10 Essential (primary) hypertension; Z79.4 Long term (current) use of insulin; Z79.2 Long term (current) use of antibiotics; Z79.899 Other long term (current) drug therapy
CPT/HCPCS: 70450; 80048; 80076; 80143; 80307; 81001; 82077; 82550; 83036; 84443; 85027; 87486; 87581; 87633; 87798; 96361; 96374; 99284; J1815